=== PATIENT | male | born 1925 | race Caucasian/White ===

== ENCOUNTER 2016-12-29 09:35 | Inpatient (IN) | payer MEDICARE ==
[2016-12-29] MEDS ORDERED: Norepinephrine 8 MG/0.9% NS 250 ML ONE (09:39)
[2016-12-29] MEDS ORDERED: Pantoprazole 80 MG, Admixture Fee 1 EACH in Sodium Chloride 0.9% 100 ML IVP SCH (10:45)
--- NOTE | 2016-12-29 10:50 | RAD ---
PORTABLE CHEST ONE VIEW: Date: 12-29-16 Time: 10:55 a.m. History: Hypoxia. FINDINGS/IMPRESSION: Comparison is made with exam 07-22-09. There is a nasogastric tube that can be traced into the stomach with tip excluded from the film. The re is a left subclavian central line with tip in the direction of the SVC. No pneumothoraces are see n. There is a small right pleural effusion. There is pulmonary vascular congestion. There are mild i nfiltrates in the mid and lower lung hsieh. POS: [facility]
[2016-12-29 10:56] LABS: #Lymphocytes 0.3 thou/uL (1.20-3.40); #Monocytes 0.2 thou/uL (0.11-0.59); #Neutrophils 5.3 thou/uL (1.40-6.50); %Basophils 0.5 % (0.0-1.0); %Eosinophils 0.2 % (0.0-10.0); %Lymphocytes 4.7 % (21.0-51.0); %Monocytes 3.8 % (0.0-10.0); Hematocrit 27.7 % (42.0-52.0); Mean Platelet Volume 7.4 fL (7.4-10.4); Red Blood Cell (RBC) Count 2.82 mill/uL (4.70-6.10); White Blood Cell (WBC) Count 5.8 thou/uL (4.8-10.8)
[2016-12-29] MEDS ORDERED: Eucerin (Mineral Oil/Petrolatum,White) 30 gm Jar TOP PRN (11:15)
[2016-12-29] MEDS ORDERED: Sodium Chloride 0.65% Nasal 44 ML BOT EA NARE PRN (11:15)
[2016-12-29] MEDS ORDERED: Milk Of Magnesia 30 ML UDCUP PO PRN (11:15)
[2016-12-29] MEDS ORDERED: Pantoprazole 80 MG in Sodium Chloride 0.9% 100 ML IVPB SCH (11:15)
[2016-12-29] MEDS ORDERED: Bisacodyl 10 MG SUPP PR PRN (11:15)
[2016-12-29] MEDS ORDERED: Acetaminophen 325 MG TAB PO PRN (11:15)
[2016-12-29] MEDS ORDERED: Artificial Tears 18 DROP/0.9 ML EA EYE PRN (11:15)
[2016-12-29 11:17] LABS: ALT (SGPT) 15 U/L (8-55); AST (SGOT) 23 U/L (5-34); Alkaline Phosphatase 109 U/L (40-150); Anion Gap 21 mmol/L (10-20); BUN (Urea Nitrogen) 37 mg/dL (8.4-25.7); Bilirubin, Total 2.2 mg/dL (0.2-1.2); Calc. Creatinine Clearance 0 mL/min (70-130); Calcium 7.8 mg/dL (7.8-10.44); Carbon Dioxide 13 mmol/L (23-31); Chloride 115 mmol/L (98-107); Critical Call Chem-Lactate NUR.KR7; Estimated GFR-MDRD 24; Globulin 2.9 g/dL (2.4-3.5); Protein, Total 5.1 g/dL (5.8-8.1)
[2016-12-29] MEDS ORDERED: Sodium Chloride 0.9% 100 ML ONE (11:24)
[2016-12-29] MEDS ORDERED: Meropenem 1 GM VIAL ONE (11:24)
[2016-12-29] MEDS ORDERED: Piperacillin/Tazobactam 3.375 GM in Sodium Chloride 0.9% 100 ML IVPB SCH (11:30)
--- NOTE | 2016-12-29 11:56 | OP ---
DATE OF PROCEDURE: 12/29/2016 PREOPERATIVE DIAGNOSES: 1. Acute hypotension, likely septic shock. 2. Bilious peritonitis. POSTOPERATIVE DIAGNOSES: 1. Acute hypotension, likely septic shock. 2. Bilious peritonitis. PROCEDURES PERFORMED: Placement of left subclavian central venous catheter. SURGEON: Garett Chen D.O. INDICATIONS FOR PROCEDURE: An 89-year-old man who is several days status post laparoscopi c cholecystectomy. The patient presented to the emergency department today with acute hypotension. He has a large bilious drainage from the previous Joshua-Mendez drainage site in the right upper riana drant. Ongoing resuscitation is in place. The patient is currently on a norepinephrine by continuous infus ion through a peripheral IV. The decision was made to place a central venous access to facilitate v asopressor support. DESCRIPTION OF PROCEDURE: Verbal informed consent obtained from the patient. He was placed in supi ne position. Left chest wall is sterilely prepped and draped in the usual fashion. The skin below the left clavicle was anesthetized with 1% lidocaine. Left subclavian vein was cannulated with an 1 8 gauge introducer needle. Dark venous blood was aspirated from the vein, following which a guidewi re was passed through this needle and placed in the left subclavian vein without resistance. The ne edle was withdrawn over the guidewire. A stab incision is made adjacent to the guidewire using an 1 1 scalpel. The dilator was passed over the guidewire dilating subcutaneous tissues. A triple-lumen central venous catheter was then advanced over the guidewire and placed in the left subclavian vein without resistance and stopping at the 18 cm astrid. The guidewire is removed. Dark venous blood wa s aspirated from all 3 ports which were then flushed with saline. The catheter was secured to the a nterior chest wall using 3-0 silk suture at 2 points. Biopatch and sterile dressing was placed. Th e patient tolerated this procedure without any apparent complications. Portable chest x-ray was obt ained confirming proper placement of the catheter without any pneumothorax present.
[2016-12-29 12:40] LABS: Bilirubin Moderate (Negative); Blood, Urine Large (Negative); Glucose, Urine (Dipstick) Negative (Negative); Ketone, Urine Trace mg/dL (Negative); Nitrite Negative (Negative); Protein, Urine (Dipstick) 100 mg/dL (Neg-Trace)
[2016-12-29 12:55] LABS: Squamous Epithelial 0-3 HPF (0-3); WBC/HPF 0-3 HPF (0-3)
[2016-12-29 12:56] LABS: Bacteria/HPF None Seen HPF (None Seen); Hyaline Casts/LPF NONE SEEN LPF (0-3 Hyaline); Renal Epithelial 0-3 HPF (0-3)
[2016-12-29] MEDS ORDERED: Meropenem 500 MG in Sodium Chloride 0.9% 100 ML IVPB SCH (14:00)
[2016-12-29] MEDS ORDERED: Meropenem 1 GM in Sodium Chloride 0.9% 100 ML IVPB SCH (14:00)
[2016-12-29] MEDS: D5 0.9% NS w/ 20 mEq KCl 1,000 ML IV SCH ×2 (14:25→23:55)
--- NOTE | 2016-12-29 14:30 | HP ---
PRIMARY CARE PHYSICIAN: City call admission. REASON FOR ADMISSION: Sent from [facility] for hypotension, coffee- ground vomiting. HISTORY OF PRESENT ILLNESS: An 89-year-old male who was recently admitted in our hospital on 2016. At that time, patient was admitted by Dr. Bran. The patient was admitted for abnormal LF T along with nausea, vomiting, and abdominal pain. The patient was found with choledocholithiasis a nd possible pancreatitis. He was admitted to medical floor. During that admission, gastroenterolog ist was consulted and the patient underwent ERCP. The patient also evaluated by Dr. Chen and Dr. Minor donovan did laparoscopic cholecystectomy and based on pathology report, the patient was having acute on chronic cholecystitis. Gallbladder wall was pretty much not existing and as per Dr. Chen, the pat ient's gallbladder was necrotizing and gangrenous. After surgery, he had drain in place which was d raining significant amount even on the day of discharge. The patient's pain was relatively well con trolled. He was discharged to senior living once all consultants cleared him with a biliary drain in place. This patient was discharged pretty much yesterday and he was sent from senior living today, because h is blood pressure was low. The patient was also having coffee-ground vomiting. He was tachycardic. The patient was taken to [facility] where he had an NG tube, which showed coffee-gr ound material. His H\T\H over there at 10.3 and his lactic acid level was 8.4. He was saturating o nly 86% on 2 liter with nasal cannula. The patient had DNR status at senior living. The patient was also hypotensive and that is why he required little bit of Levophed. Subsequently, Levophed drip w as discontinued in our emergency room. The patient was given Protonix 80 mg and then subsequently drip. The patient was also given Zosyn. The patient also received albumin 25 grams. At this point, the patient is lethargic, he is not able to provide any more history. Dr. April ricketts evaluated this patient who did central line on him. Dr. Camarena was also notified from the ER. At this point, the patient is being admitted in ICU for close monitoring. In the emergency room, Dr. Chen removed a biliary drain, after that it was leaking and there is con cern of biliary leak. PAST MEDICAL HISTORY: Hypertension, muscular dystrophy, history of pneumonia, history of brain tumo r, recent history of choledocholithiasis, Alzheimer's dementia, benign enlargement of prostate. PAST SURGICAL HISTORY: Right hand skin cancer removed, appendicectomy, laparoscopic cholecystectomy , ERCP. PAST PSYCHIATRIC HISTORY: Reviewed and negative. SOCIAL HISTORY: Patient lives in a long-term care facility in [facility]. No history of tobacco, alcohol or illicit drug abuse. FAMILY HISTORY: The patient is not able to provide any family history and no family member present at bedside at this point. ALLERGIES: No known drug allergies. CURRENT HOME MEDICATIONS: The patient was discharged yesterday on the following medication: Tyleno l 325 mg q.4 hourly p.r.n., amlodipine 5 mg p.o. daily, Augmentin 875 twice daily, Dulcolax 5 mg p.r .n., calcium 500 mg p.o. b.i.d., Pepcid 20 mg p.o. at bedtime, Proscar 5 mg p.o. daily, Linzess 145 mcg p.o. daily, Milk of Magnesia p.r.n., meclizine 12.5 mg p.o. t.i.d. p.r.n., Lopressor 50 mg twice daily, MiraLax 17 gram p.o. daily, Exelon patch 9.5 topical daily, Florastor 250 mg daily, Carafate 1 gram p.o. b.i.d., Flomax 0.4 mg p.o. at bedtime, clonidine patch every 7 days, Benadryl 25 mg q.8 hours p.r.n. EMERGENCY ROOM COURSE: As mentioned above, the patient was given Zosyn 3.375 gram, Protonix 80 mg, Levophed drip, albumin 25 gram, IV fluid. REVIEW OF SYSTEMS: The following complete review of systems was negative, unless otherwise mentione d in the HPI or below: Constitutional: Weight loss or gain, ability to conduct usual activities. Skin: Rash, itching. Eyes: Double vision, pain. ENT/Mouth: Nose bleeding, neck stiffness, pain, tenderness. Cardiovascular: Palpitations, dyspnea on exertion, orthopnea. Respiratory: Shortness of breath, wheezing, cough, hemoptysis, fever or night sweats. Gastrointestinal: Poor appetite, abdominal pain, heartburn, nausea, vomiting, constipation, or diar bárbara. Genitourinary: Urgency, frequency, dysuria, nocturia. Musculoskeletal: Pain, swelling. Neurologic/Psychiatric: Anxiety, depression. Allergy/Immunologic: Skin rash, bleeding tendency. The review of systems is limited, because of the patient's lethargy as well as underlying dementia. PHYSICAL EXAMINATION: VITAL SIGNS: Most recent vital signs, blood pressure 117/70, pulse 112, respiratory rate 18, satura tion 96% on room air, weight 72.5 kilograms, temperature 97.5. GENERAL: Patient is lethargic, arousable, no obvious acute distress. HEAD: Normocephalic, atraumatic. EYES: Pupils round, reactive to light. Extraocular muscles intact. ENT: NG tube in place. Dry mucous membranes, no oral lesions. No pharyngeal erythema, no exudate. NECK: Supple. Range of motion is normal. No meningeal signs of irritation. LUNGS: Coarse breath sounds, but no end-expiratory wheezing, no rales, no cold, no rhonchi. No acc essory muscles of respiration in use. CARDIAC: S1, S2 regular, tachycardia, no murmur elicited, no gallop, no rub. ABDOMEN: Drain site is covered with a dressing with a bile leak. The patient does have vague abdom inal discomfort, no peritoneal sign, no guarding, no rigidity, no rebound, no organomegaly, no mass. GENITOURINARY: Hidalgo catheter in place. EXTREMITIES: No edema. Good peripheral pulsation. SKIN: No skin rash. HEMATOLOGIC: No lymphadenopathy. NEUROLOGIC: The patient is moving all 4 limbs. Speech is normal. No grossly focal neurological de ficit noted at this point. SIGNIFICANT LABORATORY DATA: Record from [facility] reviewed. Currently CBC: WB C 5.8, hemoglobin 8.9, MCV 98.3, platelets 302. BMP: Sodium 145, potassium 3.5, chloride 115, carb on dioxide 13, anion gap 21, BUN 37, creatinine 2.52, glucose 88, calcium 7.8. Lactic acid 5.5. To flor bilirubin 2.2, AST 23, ALT 15, alkaline phosphatase 109, albumin 2.2. BNP 221.2. Urinalysis, b ilirubin large. Blood culture obtained. Urine culture obtained. ASSESSMENT AND PLAN: 1. Acute hypotension. Patient has coffee-ground emesis. The patient has lactic acidosis. At this point, differential diagnosis is underlying sepsis versus volume depletion. This patient has eleva edgar BNP and that is why we will cautiously give him IV fluids to prevent any volume overload. This patient may need Levophed drip if needed if his blood pressure drops to below 85. We will watch ree brenday in ICU. We will monitor vitals and hemodynamics. 2. Acute kidney failure. The patient does have elevated BUN and creatinine ratio. As mentioned ab ove, acute kidney failure is likely related with prerenal etiology from sepsis as well as from volum e depletion. At this point, we will avoid all blood pressure medication and will continue with IV f luid and we will watch for any fluid overload and we will monitor renal function. We will avoid any nephrotoxins. 3. Elevated anion gap lactic acidosis. Metabolic acidosis and lactic acidosis related with renal f ailure and possible sepsis. We will monitor BMP closely. 4. Coffee-ground emesis. The patient is already on Protonix drip. GI already notified. The patie nt may need a procedure like ERCP for upper endoscopy. We will monitor H\T\H and we will consider b lood transfusion support as needed basis. 5. Anemia due to acute blood loss. This patient's hemoglobin on discharge was 11.6, currently 8.9. We will monitor H\T\H while in hospital. If hemoglobin drops to below 8, then we will consider tr ansfusion of PRBC. 6. Recent laparoscopic cholecystectomy and choledocholithiasis. At this point, the patient's drain is removed. He has likely biliary leak. At this point, we will treat with empiric antibiotic ther apy with Zosyn. [employer] Operator and general surgeon already involved in the patient's care. We will defer plan of care for that problem to them. 7. History of hypertension, but currently hypotension, that is why we will hold all antihypertensiv e medication. 8. Alzheimer's dementia. We will consider adding Exelon patch daily. 9. Benign enlargement of prostate. We will consider continue with Flomax and Proscar while in hosp ital. 10. Elevated BNP. We will obtain echocardiography to assess ejection fraction and other structural abnormality. We will continue with the DuoNeb q.6 hours. We will watch for any fluid overload. 11. Deep venous thrombosis prophylaxis because of coffee-ground vomiting. We will avoid any hepari n product. 12. Gastrointestinal prophylaxis. Patient is already on Protonix drip. 13. Code status: The patient is DNR as per report, but patient does not have any family members, s o unable to verify his code status. Whenever we have family member contact, then will verify his co de status. Disposition and plan based on clinical course, we are expecting patient's stay in the hospital more than 2 midnights. Plan of care discussed with the patient in detail.
[2016-12-29] MEDS ORDERED: Sodium Chloride 0.9% 1,000 ML IV SCH (15:15)
[2016-12-29] MEDS ORDERED: Potassium Chloride 40 MEQ in Premix Bag 1 BAG IVPB SCH (17:45)
[2016-12-29] MEDS ORDERED: Magnesium Sulfate 3 GM in Sodium Chloride 0.9% 100 ML IVPB SCH (18:00)
[2016-12-29] MEDS: Piperacillin/Tazobactam 3.375 GM in Sodium Chloride 0.9% 100 ML IVPB SCH ×2 (19:48→23:01)
[2016-12-29] MEDS ORDERED: Lidocaine 1% (PF) 30 ML VIAL ONE (20:40)
[2016-12-29] MEDS ORDERED: Amiodarone HCl 150 MG, Admixture Fee 1 EACH in Dextrose 5% in Water 100 ML IVPB SCH ×3 (21:30)
[2016-12-29] MEDS: Amiodarone HCl 450 MG, Admixture Fee 1 EACH in Dextrose 5% in Water 250 ML IVPB SCH ×3 (21:41)
--- NOTE | 2016-12-29 21:58 | CON ---
DATE OF CONSULTATION: 12/29/2016 REASON FOR CONSULTATION: Possible bile leak. HISTORY OF PRESENT ILLNESS: Mr. Ng is known to me from an ERCP, at which time he had a large sp hincterotomy and removal of over 1 cm common bile duct stone on 12/25. His main problem; however th at he had gangrenous cholecystitis and he underwent laparoscopic cholecystectomy on 12/27/2016. He was discharged to home yesterday. He returns today hypotensive and tachycardic with abdominal pain. He had apparently a AUNDREA drain that was not draining, but it was removed in the area where massive a shanthi of bile coming out. He presented with tachycardia and hypotension. His white count was 5.8, hemoglobin 8.9, platelet count 302, lactic acid 5.5, bilirubin 2.2, AST and ALT 23 and 15 with fallon line phosphatase of 109, albumin is 2.2. Electrolytes normal, except for a BUN and creatinine of 37 and 2.52. He had a central line placed in the ER. He has not had a CAT scan of his abdomen. When he presented, he came in for reportedly coffee ground emesis in the emergency room. He received 50 0 mL bolus in the ER, pulse was 132 with a blood pressure of 112/57, temperature 98. PAST MEDICAL HISTORY, SURGICAL HISTORY and HOME MEDICATIONS: Please see consult dated on 12/23/2016 . PRESENT MEDICATIONS: He received antibiotics in the ER including Zosyn. PHYSICAL EXAMINATION: VITAL SIGNS: Blood pressure 124/56, pulse 123, he is icteric mildly. LUNGS: Clear. HEART: Regular rate and rhythm without clicks or murmurs. ABDOMEN: Protuberant. RECTAL: Examination reveals no melena. Bowel sounds are positive. LABORATORY STUDIES: As per HPI. ASSESSMENT: Likely bowel peritonitis. He has had a drop in hemoglobin from 10-11 range to 8.9 and there was reported coffee ground emesis in the outside ER. RECOMMENDATIONS: 1. IV PPI. 2. Serial H\T\Hs. 3. I think once he gets stabilized, he needs a CAT scan of abdomen and pelvis. He has a biloma pre sent that needs to be drained. 4. He has been started on broad spectrum antibiotics. 5. Regarding the role of an ERCP, unless he has bleeding from his ampulla, there is probably not a role for ERCP at this point in time. Once he is more stabilized, we can consider performing that if he has ongoing bile leak. The first biloma needs to be drained, and he needs to be treated for inf ection. If there are signs of bleeding, he will need an upper endoscopy to make sure if there is an y bleeding at his sphincterotomy site, but this would be atypical over 4 days after this procedure. A stent in the bile duct is not probably going to do very much to help his bile leak in that he alr volodymyr has a very large sphincterotomy present. The stents do not close off bile leaks; they only ser ve to decrease pressure from the common bile duct to the duodenum across the ampulla. This has alre jamarcus been done via very large generous sphincterotomy. If he has continued leaking, an ERCP would be helpful in defining the point of leak for surgical repair, if he has a large bile defect in the bethanie e duct or some type of injury in the liver.
[2016-12-29] MEDS: Pantoprazole 80 MG, Admixture Fee 1 EACH in Sodium Chloride 0.9% 100 ML IVPB SCH (22:10)
[2016-12-29] MEDS: Ondansetron HCl/PF 4 MG/2 ML Vial IVP PRN (23:01)
--- NOTE | 2016-12-30 03:59 | CON ---
NEPHROLOGY CONSULTATION NOTE DATE OF CONSULTATION: 12/29/2016 CONSULTING PHYSICIAN: Dr. Davis. REASON FOR CONSULTATION: Acute kidney injury. REASON FOR ADMISSION: Hypotension and coffee ground vomiting HISTORY OF PRESENT ILLNESS: This is an 89-year-old male who was recently discharged from the hospit al and was sent to the [facility] and was found to have abdominal pain, nausea, vomitin g and coffee ground vomiting and he was admitted back. The patient had a creatinine of 1.1 on disch arge yesterday and this morning was 2.5, potassium is 3.5. Patient is severely hypertensive with lo w urine output and is having abdominal pain. Patient is not able to give a good history. No chest pain or palpitation. The patient is a DNR status and clearly says no dialysis needed. Patient is n ot able to communicate very well. No fever or chills. Patient is currently on evaluation for GI bleed. PAST MEDICAL HISTORY: Positive for hypertension, muscular dystrophy, pneumonia, brain tumor, choled ocholithiasis, dementia and benign prostatic hypertrophy. PAST SURGICAL HISTORY: Right hand surgery for skin cancer removal, appendicectomy, laparoscopic cho lecystectomy and endoscopic retrograde cholangiopancreatography. SOCIAL HISTORY: Lives in a senior living. No smoking, alcohol or illicit drug abuse. FAMILY HISTORY: No history of any kidney disease. ALLERGIES: No known drug allergies. HOME MEDICATIONS: Reviewed include Tylenol, amlodipine, Augmentin, Dulcolax, calcium, Pepcid, Prosc ar, Linzess, Milk of Magnesia, Lopressor, MiraLax, Exelon, Florastor, Carafate, Flomax, clonidine an d Benadryl. REVIEW OF SYSTEMS: Could not be obtained due to the advanced dementia. PHYSICAL EXAMINATION: GENERAL: An elderly male in no apparent distress. VITAL SIGNS: Temperature 98.0, pulse 107, respiratory rate 12 and blood pressure 109/48. HEENT: Atraumatic and normocephalic. Oral mucosa is moist. NECK: Supple. CARDIOVASCULAR: S1 and S2 heard. Rate and rhythm regular. RESPIRATORY: Clear. GASTROINTESTINAL: Abdomen is soft. Mild diffuse tenderness. MUSCULOSKELETAL: No tenderness, no edema. DERMATOLOGIC: No skin rash. NEUROLOGIC: Awake. Dementia present. PSYCHIATRIC: Depressed. LABORATORY DATA: Potassium is 3.5. Hemoglobin is 8.9. BUN 37, creatinine is 2.5 and lactic acid i s 5.5. ASSESSMENT AND PLAN: 1. Acute kidney injury, most likely volume depletion versus sepsis. Agree with supportive care, av oid nephrotoxins and hydration as tolerated. 2. Lactic acidosis. 3. Hypoalbuminemia. 4. Anemia. 5. Acidosis. 6. Medications list reviewed. 7. Avoid nephrotoxins. Keep systolic blood pressure more than 90-100 with supportive care. Agree with albumin too and rule out sepsis. Overall, long-term prognosis is poor. We will continue to fo paul.
[2016-12-30] MEDS: Ondansetron HCl/PF 4 MG/2 ML Vial IVP PRN (05:28)
[2016-12-30 05:32] LABS: Band 33 % (5-11); Hematocrit 22.9 % (42.0-52.0); Mean Platelet Volume 7.4 fL (7.4-10.4); Metamyelocyte 1 % (0-0); Neutrophil 60 % (42-75); Nucleated RBC 1 % (0); Red Blood Cell (RBC) Count 2.34 mill/uL (4.70-6.10); White Blood Cell (WBC) Count 9.5 thou/uL (4.8-10.8)
[2016-12-30] MEDS: Amiodarone HCl 450 MG, Admixture Fee 1 EACH in Dextrose 5% in Water 250 ML IVPB SCH ×6 (05:42→21:52)
[2016-12-30] MEDS: Pantoprazole 80 MG, Admixture Fee 1 EACH in Sodium Chloride 0.9% 100 ML IVPB SCH (05:42)
[2016-12-30 05:43] LABS: ALT (SGPT) 13 U/L (8-55); AST (SGOT) 23 U/L (5-34); Alkaline Phosphatase 87 U/L (40-150); BUN (Urea Nitrogen) 45 mg/dL (8.4-25.7); Bilirubin, Total 1.5 mg/dL (0.2-1.2); Calc. Creatinine Clearance 18 mL/min (70-130); Calcium 7.9 mg/dL (7.8-10.44); Chloride 121 mmol/L (98-107); Estimated GFR-MDRD 20; Globulin 2.8 g/dL (2.4-3.5); Magnesium 2.6 mg/dL (1.6-2.6); Protein, Total 5.1 g/dL (5.8-8.1)
[2016-12-30 06:01] LABS: Anion Gap 19 mmol/L (10-20); Carbon Dioxide 10 mmol/L (23-31)
[2016-12-30] MEDS: Piperacillin/Tazobactam 3.375 GM in Sodium Chloride 0.9% 100 ML IVPB SCH (06:29)
[2016-12-30] MEDS ORDERED: Sodium Bicarbonate 150 MEQ in Dextrose 5% in Water 1,000 ML IV SCH ×2 (08:00)
[2016-12-30] MEDS ORDERED: Potassium Chloride 40 MEQ in Premix Bag 1 BAG IVPB SCH (08:30)
--- NOTE | 2016-12-30 09:16 | PDOC.PN ---
- Subjective Encounter Start Date: 12/30/16 Encounter Start Time: 09:14 Subjective: No agitation -: No f/c - Objective Resuscitation Status: Resuscitation Status FULL:Full Resuscitation MAR Reviewed: Yes Vital Signs & Weight: Vital Signs (12 hours) Temp Pulse Resp Pulse Ox 12/30/16 07:11 114 H 32 H 99 12/30/16 00:07 114 H 30 H 100 12/30/16 00:00 97.9 F Weight Weight 171 lb 1.259 oz Most Recent Monitor Data Heart Rate from ECG 107 NIBP 138/45 NIBP BP-Mean 76 Respiration from ECG 26 SpO2 100 I&O: 12/29/16 12/30/16 12/31/16 06:59 06:59 06:59 Intake Total 3796 Output Total 699 Balance 3097 Result Diagrams: 12/30/16 04:46 12/30/16 04:46 Phys Exam - Physical Examination Constitutional: NAD HEENT: moist MMs, sclera anicteric Neck: no nodes, no JVD Respiratory: no wheezing, no rales, no rhonchi Cardiovascular: no significant murmur, no rub Gastrointestinal: soft tender - generalized Lymphatic: no nodes Skin: no rash, normal turgor Dx/Plan (1) Hypotension Status: Acute (2) S/P laparoscopic cholecystectomy Code(s): Z90.49 - ACQUIRED ABSENCE OF OTHER SPECIFIED PARTS OF DIGESTIVE TRACT Status: Acute (3) Anemia, normocytic normochromic Code(s): D64.9 - ANEMIA, UNSPECIFIED Status: Chronic - Plan * s/p cholecystectomy and biliary drain: ? biliary leak (biliary drain removed) * Acute blood loss anemia 2/2 GI bleed: appreciate GI input, IV PPI, check serial H/H * Shock 2/2 Sepsis vs. Volume depletion/Hemorrhage: appreciate pulm input, monitor BP closely in ICU, blood cxs, abx * MONIQUE: avoid nephrotoxic agents, check renal labs in AM
--- NOTE | 2016-12-30 10:36 | PRG ---
DATE OF SERVICE: 12/30/2016 SUBJECTIVE: Mr. Manolo Ng is an 89-year-old male, hospital day #2. The patient was admitted yeste rday for hypotension, shock, status post laparoscopic cholecystectomy after being admitted for acute gangrenous cholecystitis with cholelithiasis. The patient had received ERCP prior to a laparoscopi c cholecystectomy yesterday. His drain was removed from his abdomen. There has been copious biliou s output from the drain site since that time. The patient was initially admitted on vasopressors. Overnight these have been weaned off. However, the patient was in atrial fibrillation with rapid ve ntricular rate. He was started on amiodarone. Rate did improve initially, but is back in the 120s this a.m. Upon our evaluation, the patient is awaiting a repeat CT scan of the abdomen with p.o. con trast. He was given 1 dose of contrast and threw up. His NG tube was found to be malfunctioning. We replaced it at bedside with Dr. Chen. OBJECTIVE: VITAL SIGNS: Temperature 98.1, pulse 135, respirations 26, O2 sat 97% on 4 liters nasal cannula, bl ood pressure 138/45. GENERAL: Elderly appearing male in no acute distress, resting in bed. PULMONARY: Normal work of breathing. Symmetric rise. CARDIOVASCULAR: Irregularly irregular. Tachycardic. GASTROINTESTINAL: The abdomen is soft with mild generalized tenderness. He still has bilious appea ring output from his drain site. He has dark NG output. MUSCULOSKELETAL: Moves all extremities x4. NEUROLOGIC: No focal deficit noted. LABORATORY DATA: WBC 9.5, hemoglobin 7.1, hematocrit 22.9, platelet count 331. Sodium 145, potassi um 3.5, chloride 121, carbon dioxide 10, BUN 45, creatinine 3.0. Glucose 190, calcium 7.9, phosphor us 2.5, magnesium 2.6, total bilirubin 1.5. NG output, there is greater than 1 liter in the caniste r of dark coffee ground appearing liquid. Urine output overnight documented as 174 mL. The right-s ided abdominal drain with 425 mL out overnight. ASSESSMENT: 1. Status post laparoscopic cholecystectomy 12/25/[address] Chen. 2. Recent acute gangrenous cholecystitis with cholelithiasis. 3. Shock. 4. Acute kidney injury likely secondary to acute tubular necrosis. 5. Metabolic acidosis secondary to above. 6. Atrial fibrillation with rapid ventricular response. 7. Acute blood loss anemia. 8. Likely gastrointestinal bleed. 9. Electrolyte abnormality. PLAN: Continue amiodarone infusion. Start bicarbonate drip at 150 mL an hour. Replete electrolyt es as necessary. Follow urine output. Follow respiratory status closely. Follow drainage output. Transfuse 1 unit packed red blood cells. Follow GI plan and recommendations. Nephrology has been consulted by primary/medicine team. This patient was seen and evaluated by Dr. Chen.
[2016-12-30] MEDS: Piperacillin/Tazobactam 2.25 GM in Sodium Chloride 0.9% 100 ML IVPB SCH ×2 (11:12→18:09)
[2016-12-30] MEDS ORDERED: Fentanyl 100 MCG/2 ML VIAL ONE (13:50)
[2016-12-30] MEDS ORDERED: Succinylcholine Chloride 20 MG/ML 10 ml SYRINGE FS ONE (14:03)
[2016-12-30] MEDS ORDERED: ePHEDrine/0.9% NaCl/PF SYRINGE 50 mg/10 ml ONE (14:03)
[2016-12-30] MEDS ORDERED: PHENYLEPHRINE-NS 100 MCG/ML 10 ML SYRINGE ONE (14:03)
[2016-12-30] MEDS ORDERED: Vecuronium 10 MG VIAL ONE (14:03)
[2016-12-30] MEDS ORDERED: Phenylephrine 10 MG/NS 250 ML 250 ML ONE (14:47)
[2016-12-30] MEDS ORDERED: Iothalamate Meglumine 60% 50 ML VIAL FS ONE (14:50)
[2016-12-30 15:40] LABS: #Lymphocytes 0.4 thou/uL (1.20-3.40); #Monocytes 0.3 thou/uL (0.11-0.59); %Basophils 0.1 % (0.0-1.0); %Eosinophils 0.1 % (0.0-10.0); %Monocytes 3.3 % (0.0-10.0); Hematocrit 27.1 % (42.0-52.0); Mean Platelet Volume 6.7 fL (7.4-10.4); Red Blood Cell (RBC) Count 2.79 mill/uL (4.70-6.10); White Blood Cell (WBC) Count 8.7 thou/uL (4.8-10.8)
[2016-12-30 15:44] LABS: PTT 64.5 SEC (22.9-36.1); Prothrombin Time 21.8 SEC (12.0-14.7)
[2016-12-30] MEDS ORDERED: Midazolam HCl 2 mg/2 ml Vial SLOW IVP SCH (15:45)
[2016-12-30] MEDS ORDERED: Fentanyl 100 MCG/2 ML VIAL SLOW IVP SCH (15:45)
[2016-12-30 16:34] LABS: Oxyhemoglobin 89.9 % (94.0-97.0); Sodium 147 mmol/L (135-148)
[2016-12-30 16:37] LABS: Vent YES
[2016-12-30 16:38] LABS: Mechanical Tidal Volume 500 ml; Mode SIMV; Pressure Support 10 cmH2O
[2016-12-30] MEDS: Albumin 5% 500 ML ONE ×2 (16:45→18:02)
--- NOTE | 2016-12-30 17:52 | PRG ---
DATE OF SERVICE: 12/30/2016 SUBJECTIVE: The patient is seen and examined in ICU and in mild to moderate distress. Patient was having shortness of breath and he is tachycardic, started on IV fluids and surgery team is following . OBJECTIVE: GENERAL: This is an elderly male in mild to moderate distress. VITAL SIGNS: Temperature 98.0, pulse 141, respiratory rate 30, blood pressure is 133/47. HEENT: Atraumatic, normocephalic. Oral mucosa is moist. NECK: Supple, no masses. CARDIOVASCULAR: S1, S2 heard, tachycardic. RESPIRATORY: Coarse crackles bilaterally. GASTROINTESTINAL: Abdomen is soft. Mild tenderness. MUSCULOSKELETAL: No tenderness, no edema. DERMATOLOGIC: No skin rash. NEUROLOGIC: Alert, awake, but not oriented and dementia present. LABORATORY DATA: Hemoglobin is 8.6. WBC is 8.7, potassium 3.5, BUN is 45, creatinine is 3.7. ASSESSMENT AND PLAN: 1. Acute kidney injury most likely from sepsis and volume depletion. Agree with hydration, not isaac e if patient is able to tolerate all the IV fluids. Continue close monitoring of the respiratory st atus and monitor. 2. Lactic acidosis, currently on bicarbonate drip. 3. Hypoalbuminemia. 4. Anemia, status post transfusion and follow up with GI. Overall, long-term prognosis is poor. No acute indication for dialysis. My understanding is the andi jonathan refused to have dialysis, continue supportive care, avoid nephrotoxins, and renally dose all t he medicines. Continue hydration as tolerated with close monitoring respiratory status. Continue I CU monitoring. We will follow.
--- NOTE | 2016-12-30 18:18 | OP ---
DATE OF PROCEDURE: 12/30/2016 PROCEDURES PERFORMED: Endoscopic retrograde cholangiopancreatography with plastic biliary stent neftaly cement and esophagogastroduodenoscopy with control of hemorrhage. PREOPERATIVE DIAGNOSIS: Acute gastrointestinal bleed, post-sphincterotomy and bile leak. DESCRIPTION OF PROCEDURE: The procedure was performed emergently. The patient had signs of ongoing bleeding with hemodynamic compromise with tachycardia with a pulse in the 120s. He was tachypneic and required intubation and mechanical ventilation. The forward viewing endoscope was advanced easi ly to the second portion of the duodenum and retroflexion was performed in the stomach. There was e rosive esophagitis at the GE junction with a focal area of mucosal break with a bloody base, but not active bleeding. This may have been a site of NG trauma; however, a small Nolvia-Perez tear was a lso possible. This site was cauterized with a 10-Libyan gold probe with good hemostasis confirmed. There was some circumferential erosive esophagitis around the GE junction as well. The gastric muc aleta was normal including retroflexed views. The pylorus was normal and the first portion of the duo denum were normal. The sphincterotomy site had fresh red blood clot around it. This was washed wit h water and reaccumulation of the fresh clot occurred. The common bile duct was cannulated easily w ith a sphincterotome and the guidewire was advanced up into the intrahepatic ducts. Cholangiogram w as performed which revealed a high-grade leak from the cystic duct stump. There was no clip remaini ng at the cystic duct stump. A 7 cm 11.5 Libyan stent was then placed. Good bile flow was visualiz ed from the stent. The sphincterotomy site was again washed through the sphinctertome; and at this point, an active pulsatile bleeding site could be visualized in the base of the sphincterotomy site near the stent. This site was cauterized with a 10-Libyan gold probe with good hemostasis confirmed . Air and bile was then suctioned from the stomach. Then, procedure was completed. IMPRESSION: 1. Grade C erosive esophagitis at the gastroesophageal junction with a focal mucosal break, which m ay have been NG trauma, but a small Nolvia-Perez was also possible. This was cauterized with a 10- Libyan gold probe. 2. Active pulsatile bleeding from the sphincterotomy site. This was controlled with good hemostasi s with electrocautery with a 10-Libyan gold probe. 3. High-grade bile leak from the cystic duct stump. An 11.5 Libyan 7 cm stent was placed with good bile flow was visualized. RECOMMENDATIONS: 1. Follow output from the AUNDREA drain. Hopefully, the bile leak will resolve with stenting and having been post-sphincterotomy. 2. The plastic biliary stent will need to be removed around a month.
--- NOTE | 2016-12-30 18:36 | RAD ---
ERCP: 12/30/16 Total of four views taken with fluoroscopy in OR during ERCP procedure are preserved. HISTORY: Intraoperative imaging during ERCP procedure. FINDINGS/IMPRESSION: Initial image shows cannulization of the common duct. There is suggestion of filling defect in the l ower common duct. there is partial opacification of the common duct. There is evidence of a focus of extravasated contrast adjacent to the common duct. The following images show wire in the common jeancarlos t and a final image shows evidence of a common duct stent placement. POS: GAGANDEEP
[2016-12-30] MEDS ORDERED: Fentanyl 5000 MCG/250 ML CADD IV PRN (19:03)
--- NOTE | 2016-12-30 19:19 | CT ---
CT ABDOMEN AND PELVIS WITHOUT IV CONTRAST: 12/30/16 Multiple axial tomograms obtained through the abdomen and pelvis without IV enhancement. Some oral c ontrast had been previously given. Today's exam is performed following ERCP procedure. HISTORY: Bile leak. FINDINGS: Images through the lung bases show small to moderate bilateral pleural effusions with dense bibasila r atelectasis. Images through the upper abdomen show extravasated contrast surrounding the liver margin and into th e lucas hepatis consistent with extravasation of contrast during the ERCP procedure. There is a comm on bile duct stent noted in place. There is free intraperitoneal air. There is dense contrast seen within the gastric lumen in the left upper quadrant. When comparison is made to CT from [facility] performed 12/29/16, this focal contrast was present at that time and does not represent extravasated contrast or contrast entering the stomach from the rec ent ERCP procedure. There is a small amount of fluid in the left upper quadrant surrounding the sple en. Free fluid/bile does extend along the right colonic gutter into the pelvis. There are mildly dilated loops of jejunum which appear nonspecific. The ileal loops are normal calib er. Jejunal loops do measure up to 4 cm. This has a similar appearance to the CT from [facility] and a partial proximal to mid small bowel obstruction cannot be excluded. Kidneys are unremarkable. There is no hydronephrosis seen. Free fluid extends into the right inguinal canal. IMPRESSION: 1. Small to moderate bilateral pleural effusions with dense bibasilar atelectasis. 2. Extravasated contrast surrounding the liver margin and into the lucas hepatis which represen ts extravasated contrast from the ERCP procedure performed earlier today. 3. There is a focal area of dense contrast in the gastric lumen in left upper quadrant which wa s present on yesterday's CT from [facility] and is not related to the contrast fro m the ERCP procedure. 4. There is free bile/fluid surrounding the liver and extending down the colonic gutter and int o the pelvis. A small amount of free fluid also surrounds the spleen. 5. Dilated loops of jejunum with normal caliber ileal loops. This was also present on the CT fr om [facility]. Partial small bowel obstruction cannot be excluded. POS: GAGANDEEP
[2016-12-30] MEDS ORDERED: Fentanyl 20 MCG/ML 250 ML IVPB SCH (20:36)
[2016-12-30 21:38] LABS: Hematocrit 26.9 % (42.0-52.0)
--- NOTE | 2016-12-30 22:13 | PRG ---
DATE OF SERVICE: 12/30/2016 SUBJECTIVE: Ms. Ng remains tachycardic with heart rate about 117-120, respirations are about 40 , blood pressure is 137/49. He is on no pressors. He is without complaints. The nurses note that he has been throwing up. Dr. Chen has apparently been trying to give him oral contrast for a CAT s can. He has not had any reported bowel movements. In's and out's of right lower quadrant drain bag has set out 425 mL bilious fluid. Gastric drainage is recorded at 700 mL, this is coffee- ground l zoltan. Urine output was 124 yesterday and 150 today. OBJECTIVE: GENERAL: He is nonicteric. LUNGS: Coarse with sounds at bases. CARDIAC: Heart has irregular rate and rhythm. ABDOMEN: Slightly protuberant. Bile is green in color, it is coming out of the drain. EXTREMITIES: Reveal no clubbing, cyanosis or edema. LABORATORY STUDIES: Sodium is 149, potassium 3.5, chloride is 121, bicarbonate is 10, anion gap 14, BUN 45 up from 37 yesterday, creatinine is 3 up from 2.5 yesterday and 1.15 on , bilirubin is 1 .5, AST 23, ALT 13, albumin 2.3. INR was 1.2 on the . Hematology: White count 9.5; hemoglobin is down to 7.1 it had been right around 10 to 10.7 during his last admission, it was 8.9 on admissi on yesterday, 7.1 today; platelet count 331,000. ASSESSMENT: 1. Acute renal failure. 2. Biloma spontaneously drainage from abdominal wound. The plan today was for him to have a repeat CAT scan, but this has been delayed as he was throwing up oral contrast. I have recommended to Gen eral Surgery if they stop the oral contrast as he cannot tolerate it and get a CAT scan without cont rast to reevaluate the issue of biloma and if he has a biloma, needs to be drained by Radiology. 3. He has had a drop in hemoglobin. Some of this is probably related to hydration. He is positive over 3 L since admission, but he does have about 700-800 mL of coffee-ground emesis in the emesis c ontainer and his hemoglobin has dropped from 11.6-7.1, presently he is receiving a unit of blood. RECOMMENDATIONS: Continue IV Protonix drip, transfuse another unit of blood, emergent EGD this afte rnoon and if that is negative, I suspect more suspicious issue such as a Nolvia-Perez tear, but the ample will be evaluated as well. My partner, Dr. Swapnil Morin, is going to do that this afternoon and this has been discussed with the patient and family. Issues or questions regarding bile duct stent are not applicable presently in light of how ill this patient is. Bile duct stent is probably not going to add anything to improvement of his biliary la inage, bile leak that has already been achieved a large sphincterotomy. This can be addressed when the patient is more stable. With regard to patient's respiratory rate of around 40, he will likely return to the ICU intubated r esulting in a component of respiratory failure.
[2016-12-31] MEDS: Piperacillin/Tazobactam 2.25 GM in Sodium Chloride 0.9% 100 ML IVPB SCH ×4 (00:13→17:16)
[2016-12-31] MEDS: Sodium Bicarbonate 150 MEQ, Admixture Fee 1 EACH in Dextrose 5% in Water 1,000 ML IV SCH ×3 (02:01)
[2016-12-31] MEDS: Pantoprazole 80 MG, Admixture Fee 1 EACH in Sodium Chloride 0.9% 100 ML IVPB SCH ×2 (02:02→13:24)
[2016-12-31 04:44] LABS: Hematocrit 25.6 % (42.0-52.0)
[2016-12-31 07:11] LABS: Hematocrit 24.1 % (42.0-52.0)
[2016-12-31 07:14] LABS: Hematocrit 24.6 % (42.0-52.0); Mean Platelet Volume 7.2 fL (7.4-10.4); Red Blood Cell (RBC) Count 2.63 mill/uL (4.70-6.10); White Blood Cell (WBC) Count 5.9 thou/uL (4.8-10.8)
[2016-12-31 07:16] LABS: Prothrombin Time 19.6 SEC (12.0-14.7)
[2016-12-31 07:17] LABS: PTT 57.3 SEC (22.9-36.1)
[2016-12-31 07:37] LABS: ALT (SGPT) 9 U/L (8-55); AST (SGOT) 15 U/L (5-34); Alkaline Phosphatase 76 U/L (40-150); Anion Gap 15 mmol/L (10-20); BUN (Urea Nitrogen) 43 mg/dL (8.4-25.7); Bilirubin, Total 1.2 mg/dL (0.2-1.2); Calc. Creatinine Clearance 20 mL/min (70-130); Calcium 7.3 mg/dL (7.8-10.44); Carbon Dioxide 20 mmol/L (23-31); Chloride 115 mmol/L (98-107); Estimated GFR-MDRD 21; Globulin 2.6 g/dL (2.4-3.5); Magnesium 2.3 mg/dL (1.6-2.6); Protein, Total 4.9 g/dL (5.8-8.1)
[2016-12-31 07:55] LABS: Band 45 % (5-11); Metamyelocyte 2 % (0-0); Myelocyte 1 % (0-0); Neutrophil 44 % (42-75); Nucleated RBC 1 % (0); Polychromasia SLIGHT = 2-3 cells (100X) (0-2/hpf); Toxic Granulation SLIGHT; Vacuoles SLIGHT
--- NOTE | 2016-12-31 08:47 | PDOC.PN ---
- Subjective Encounter Start Date: 12/31/16 Encounter Start Time: 08:43 Subjective: Intubated -: No agitation - Objective Resuscitation Status: Resuscitation Status FULL:Full Resuscitation MAR Reviewed: Yes Vital Signs & Weight: Vital Signs (12 hours) Temp Pulse Resp BP Pulse Ox 12/31/16 07:45 97.6 F 96 16 100 12/31/16 06:55 96 107/55 L 12/31/16 06:52 92 17 99 12/31/16 05:38 19 12/31/16 04:00 98.3 F 12/31/16 03:57 0 L 12/31/16 02:32 107 H 112/65 12/31/16 02:00 0 L 12/31/16 00:09 90 126/58 L 12/31/16 00:00 97.6 F 0 L 12/30/16 22:17 113 H 124/71 12/30/16 22:00 0 L Weight Admit Weight 171 lb Weight 179 lb 0.246 oz Most Recent Monitor Data Heart Rate from ECG 99 NIBP 107/55 NIBP BP-Mean 63 Respiration from ECG 16 SpO2 99 I&O: 12/30/16 12/31/16 01/01/17 06:59 06:59 06:59 Intake Total 3796 5315.6 Output Total 699 2646 Balance 3097 2669.6 Result Diagrams: 12/31/16 07:01 12/31/16 07:01 Phys Exam - Physical Examination Constitutional: NAD HEENT: moist MMs, sclera anicteric Neck: no nodes, no JVD Intubated Cardiovascular: no significant murmur, no rub Gastrointestinal: soft, non-tender, positive bowel sounds Deviation from normal: unable to assess Skin: normal turgor, cap refill <2 seconds Dx/Plan (1) Hypotension Status: Acute (2) S/P laparoscopic cholecystectomy Code(s): Z90.49 - ACQUIRED ABSENCE OF OTHER SPECIFIED PARTS OF DIGESTIVE TRACT Status: Acute (3) Anemia, normocytic normochromic Code(s): D64.9 - ANEMIA, UNSPECIFIED Status: Chronic - Plan * s/p cholecystectomy and biliary drain: ? biliary leak (biliary drain removed) - ERCP with plastic biliary stent placement and EGD with control of hemorrhage ( performed on 12-30-16) * Acute blood loss anemia 2/2 GI bleed: appreciate GI input, IV PPI, check serial H/H * Shock 2/2 Sepsis vs. Volume depletion/Hemorrhage: appreciate pulm input, monitor BP closely in ICU, blood cxs, abx * MONIQUE: avoid nephrotoxic agents, check renal labs in AM * Fungemia: Start Diflucan IV, consult ID, check labs in AM
[2016-12-31] MEDS: Micafungin 100 MG in Sodium Chloride 0.9% 100 ML IVPB SCH (12:47)
[2016-12-31 14:18] LABS: Hematocrit 22.2 % (42.0-52.0)
[2016-12-31 14:32] LABS: Modified Allen's Test NOT DONE; Oxyhemoglobin 95.4 % (94.0-97.0); Sodium 145 mmol/L (135-148); Vent YES
[2016-12-31 14:33] LABS: Mechanical Tidal Volume 500 ml; Mode SIMV/PSV; Pressure Support 10 cmH2O
--- NOTE | 2016-12-31 16:11 | PRG ---
DATE OF SERVICE: 12/31/2016 SUBJECTIVE: Mr. Ng remains intubated on the ventilator. He has thick dark secretions suctioned from his lungs. OBJECTIVE: VITAL SIGNS: Temperature 98.0, pulse is in the 106 range, blood pressure 93/43 to 119/53. GENERAL: He is lightly sedated. He will gently squeeze my fingers on command. LUNGS: Clear to auscultation anteriorly. HEART: Tachycardic S1, S2. ABDOMEN: Distended and unable to auscultate bowel sounds. His abdomen is soft. It does not guard. EXTREMITIES: 1+ lower extremity edema. LABORATORY DATA: White blood cell count 5.9, hemoglobin is 7.5, platelets 184 and he is status post 2 units transfusion yesterday afternoon. INR is 1.6, creatinine 2.89, albumin 2.3. IMPRESSION: 1. High grade bile leak. This appears to be from the cystic duct stump. He has contrast and air i n the abdomen from injection of the contrast into the bile duct and then air passing under pressure from the scope through the stent. The stent is now in place and it was draining bile well yesterday . His bilirubin is normal at 1.2. 2. Coagulopathy. This may be due to dietary factors plus antibiotics plus bile leak. If he contin ues to show signs of bleeding, then he can be given vitamin K. 3. Anemia. His hemoglobin is 7.5 today after 2 units transfusion. He still had some dark aspirate from the NG tube. He has had no bowel movement. PLAN: 1. He is on broad spectrum antibiotics. 2. We will give a dose of vitamin K. 3. Continue to follow the trend of the hemoglobin daily and evaluate for overt bleeding. 4. He has been started on Diflucan as he has grown yeast in 2 blood cultures.
--- NOTE | 2016-12-31 18:13 | PRG ---
NEPHROLOGY PROGRESS NOTE DATE OF SERVICE: 12/31/2016 SUBJECTIVE: The patient was seen and examined in ICU and intubated today, not responding. OBJECTIVE: GENERAL: An elderly male who was intubated. VITAL SIGNS: Temperature 97.6, pulse 97, respirations 19 and blood pressure 100/42. HEENT: Intubated. CARDIOVASCULAR: S1 and S2 heard. Rate and rhythm regular. RESPIRATORY: Coarse breath sounds. GASTROINTESTINAL: Abdomen is soft. MUSCULOSKELETAL: 1+ edema. DERMATOLOGIC: No skin rashes. NEUROLOGIC: Intubated. LABORATORY DATA: Hemoglobin is 8.1 and WBC is 5.9. Potassium is 3.0, BUN is 43 and creatinine is 2 .8. ASSESSMENT AND PLAN: 1. Acute kidney injury, multifactorial and currently on hydration. Patient is intubated on 150 mL per hour, monitor closely. 2. Lactic acidosis. 3. Hypoalbuminemia. 4. Acidosis, better. 5. Anemia. 6. Continue hydration as tolerated. Urine output seems to be better. Avoid nephrotoxins. We will follow. Replace potassium, most likely from the bicarbonate drip. 7. Hypokalemia. Overall, prognosis remains poor. We will follow.
[2016-12-31] MEDS ORDERED: Potassium Phosphate 30 MMOL in Sodium Chloride 0.9% 250 ML 250 ML IVPB SCH (20:00)
[2016-12-31] MEDS: Norepinephrine 8 MG/0.9% NS 250 ML IVPB PRN (21:58)
[2016-12-31 23:22] LABS: Hematocrit 26.4 % (42.0-52.0)
--- NOTE | 2017-01-01 00:16 | PRG ---
DATE OF SERVICE: 12/31/2016 SUBJECTIVE: Mr. Ng is intubated after yesterday's procedure. Findings were discussed with Dr. Morin. OBJECTIVE: VITAL SIGNS: Temperature of 98, pulse 93, blood pressure 93/43 art line, 111/54 manual on cuff. LUNGS: Clear. HEART: Regular. ABDOMEN: Slightly protuberant. AUNDREA drain is still draining 270 today. Urine 275 today. LABORATORY STUDIES: Hemoglobin is 7.5 to 8.1 this morning, white count 9.5. INR 1.6. PH 7.49. Ch emistries: Sodium 147, potassium 3, BUN and creatinine are 43 and 2.89. Liver function tests ana cristina l. ASSESSMENT: 1. Bile leak cystic duct stump leak. 2. Post sphincterotomy bleed, controlled yesterday, transfuse 1 unit of blood. RECOMMENDATIONS: 1. Continue IV PPI. 2. Extubation per General Surgery. 3. For the bile leak, I would agree with broad-spectrum antibiotics. If bile leak continues, could consider transfer as an outpatient to [place] for the questionable role of stents for large h igh volume bile leaks. If he does not improve and remains ventilated and it is felt that the leakin g needs to be closed in a surgical fashion, he will need to be transferred to [place] for those type of interventions are not available here.
[2017-01-01] MEDS: Pantoprazole 80 MG, Admixture Fee 1 EACH in Sodium Chloride 0.9% 100 ML IVPB SCH ×2 (00:56→19:43)
[2017-01-01] MEDS: Piperacillin/Tazobactam 2.25 GM in Sodium Chloride 0.9% 100 ML IVPB SCH ×5 (00:56→23:56)
[2017-01-01] MEDS: Sodium Bicarbonate 150 MEQ, Admixture Fee 1 EACH in Dextrose 5% in Water 1,000 ML IV SCH ×6 (00:57→08:10)
[2017-01-01 05:14] LABS: Anion Gap 17 mmol/L (10-20); BUN (Urea Nitrogen) 45 mg/dL (8.4-25.7); Calc. Creatinine Clearance 20 mL/min (70-130); Calcium 6.9 mg/dL (7.8-10.44); Carbon Dioxide 25 mmol/L (23-31); Chloride 106 mmol/L (98-107); Estimated GFR-MDRD 21; Magnesium 1.8 mg/dL (1.6-2.6); Phosphorus 3.3 mg/dL (2.3-4.7)
[2017-01-01 05:15] LABS: Band 20 % (5-11); Hematocrit 24.4 % (42.0-52.0); Mean Platelet Volume 7.6 fL (7.4-10.4); Neutrophil 76 % (42-75); Red Blood Cell (RBC) Count 2.64 mill/uL (4.70-6.10); White Blood Cell (WBC) Count 10.4 thou/uL (4.8-10.8)
[2017-01-01] MEDS: Amiodarone HCl 450 MG, Admixture Fee 1 EACH in Dextrose 5% in Water 250 ML IVPB SCH ×6 (08:10→19:43)
[2017-01-01 08:28] LABS: Oxyhemoglobin 95.4 % (94.0-97.0); Sodium 143 mmol/L (135-148)
[2017-01-01 08:29] LABS: Modified Allen's Test NOT DONE; Vent YES
[2017-01-01 08:30] LABS: Mechanical Tidal Volume 500 ml; Mode SIMV/PSV; Pressure Support 10 cmH2O
[2017-01-01] MEDS ORDERED: Potassium Chloride 40 MEQ in Sodium Chloride 0.9% 500 ML IVPB SCH (08:30)
[2017-01-01] MEDS ORDERED: Magnesium Sulfate 4 GM in Sodium Chloride 0.9% 250 ML 250 ML IVPB SCH (08:30)
[2017-01-01] MEDS ORDERED: Sodium Chloride 0.45% 1,000 ML IV SCH ×2 (09:00→12:45)
[2017-01-01] MEDS ORDERED: Midazolam HCl 2 mg/2 ml Vial ONE (09:28)
[2017-01-01] MEDS: Norepinephrine 8 MG/0.9% NS 250 ML IVPB PRN ×2 (10:07→16:49)
[2017-01-01] MEDS ORDERED: Phytonadione 10 MG/ML AMP SC SCH (10:15)
[2017-01-01] MEDS ORDERED: Furosemide 100 mg/100 ml in NS IVPB SCH (10:30)
[2017-01-01] MEDS ORDERED: Midazolam HCl 2 mg/2 ml Vial IVP SCH (10:30)
[2017-01-01] MEDS: Furosemide 100 MG in Sodium Chloride 0.9% 90 ML IVPB SCH (11:24)
[2017-01-01] MEDS: Micafungin 100 MG in Sodium Chloride 0.9% 100 ML IVPB SCH (13:37)
--- NOTE | 2017-01-01 13:45 | PDOC.PN ---
- Subjective Encounter Start Date: 01/01/17 Encounter Start Time: 13:42 Patient seen and examined, no family at bedside. - Objective Resuscitation Status: Resuscitation Status FULL:Full Resuscitation Vital Signs & Weight: Vital Signs (12 hours) Temp Pulse Resp BP Pulse Ox 01/01/17 08:16 120 H 133/58 L 01/01/17 08:13 118 H 18 100 01/01/17 08:00 98.9 F 120 H 19 100 01/01/17 06:00 19 01/01/17 04:00 99.3 F 19 01/01/17 02:00 19 Weight Admit Weight 171 lb Weight 179 lb 0.246 oz Most Recent Monitor Data Heart Rate from ECG 108 NIBP 129/69 NIBP BP-Mean 89 Respiration from ECG 19 SpO2 100 I&O: 12/31/16 01/01/17 01/02/17 06:59 06:59 06:59 Intake Total 5665.6 5363.7 Output Total 2646 1438 300 Balance 3019.6 3925.7 -300 Result Diagrams: 01/01/17 04:15 01/01/17 04:15 Phys Exam - Physical Examination Constitutional: NAD intubated/sedated HEENT: PERRLA Neck: no nodes, no JVD coarse breath sounds B/L, NG tube in place Cardiovascular: RRR, no significant murmur subclavian central line in place Gastrointestinal: soft, non-tender, no distention Musculoskeletal: pulses present, edema present (1+ pitting edema B/L LE) sedated Lymphatic: no nodes Deviation from normal: sedated Dx/Plan (1) Acute kidney failure Status: Acute (2) Shock Code(s): R57.9 - SHOCK, UNSPECIFIED Status: Acute (3) Hypotension Status: Acute (4) S/P laparoscopic cholecystectomy Code(s): Z90.49 - ACQUIRED ABSENCE OF OTHER SPECIFIED PARTS OF DIGESTIVE TRACT Status: Acute (5) Anemia, normocytic normochromic Code(s): D64.9 - ANEMIA, UNSPECIFIED Status: Chronic (6) Hypophosphatemia Code(s): E83.39 - OTHER DISORDERS OF PHOSPHORUS METABOLISM Status: Resolved - Plan * cont abx and pressors for now * vent management per pulmonary * afebrile in last 24 hours * no changes in plan of care for now * no family at bedside * further management as per consultants
--- NOTE | 2017-01-01 14:25 | PRG ---
DATE OF SERVICE: 01/01/2017 SUBJECTIVE: Mr. Ng is sedated on the ventilator. He does briefly respond to verbal stimulus. He underwent bronchoscopy this morning. He has had again bloody aspirate from the NG tube. PHYSICAL EXAMINATION: VITAL SIGNS: Temperature 98.9, pulse 120, blood pressure 133/58. GENERAL: He is lightly sedated. LUNGS: Have coarse breath sounds bilaterally. HEART: Tachycardic, S1, S2. ABDOMEN: Soft. Bowel sounds are hypoactive. Nondistended. EXTREMITIES: 1+ pitting lower extremity edema. LABORATORY DATA: White blood cell count 10.4, hemoglobin 8.1. This is status post 1 unit transfusi on last night, up from 7.5. INR 1.6 yesterday. Creatinine 2.91. IMPRESSION: 1. High grade bile leak. 2. Post-sphincterotomy bleed. Status post cautery. He likely is oozing from this site again. His hemoglobin responded appropriately to transfusion last night. We will continue to follow the trend of his hemoglobin and transfuse as necessary. I would try to avoid further invasive procedures at this point. 3. Elevated INR. We will give a dose of vitamin K as this is likely due to dietary factors plus th e antibiotics. PLAN: 1. He is on antibiotics. 2. He has been started on pressors. 3. Transfuse as needed. 4. He is on Diflucan for fungemia. 5. Vitamin K. 6. Recheck coags in the morning.
--- NOTE | 2017-01-01 15:35 | PRG ---
DATE OF SERVICE: 01/01/2017 SUBJECTIVE: Mr. Ng is sedated on mechanical ventilator support. He awakens , denies any pain at this time. He was restarted on norepinephrine at 10 mcg per minute overnight. Urinary output currently is in excess of 0.5 mL per kilogram per hour. OBJECTIVE: VITAL SIGNS: Current vital signs on these settings include blood pressure 133/ 58, pulse 118, respirations 18, temperature 98.9 degrees Fahrenheit, oxygen saturation is 100% on FIO2 of 45%. HEENT: Reveals normocephalic and atraumatic with bilateral scleral edema. He has no jugular venous distention noted. HEART: Reveals regular rate with sinus tachycardia. No murmurs or gallops auscultated. LUNGS: Clear to auscultation bilaterally. His breathing is regular and unlabored. ABDOMEN: Soft, minimal tenderness to palpation. The abdominal drain returned 350 mL of bile over the last 24 hours, which is improved over the 750 mL returned 24 hours previously. EXTREMITIES: Reveal 2+ radial and pedal pulses bilaterally. He has no ankle edema present. NEUROLOGIC: Reveals no focal deficits present. PERTINENT LABORATORY FINDINGS: Today include CBC with 10,400 white blood cells , hemoglobin 8.1, hematocrit is 24.4, platelet count is 173,000. Metabolic profile today, sodium 145, potassium is 3.3, chloride is 106, bicarbonate 25, BUN is 45, creatinine is 2.91, stable. Glucose is 160. Magnesium is 1.8 and phosphorus is 3.3. IMPRESSION: 1. Acute respiratory failure, improving. The patient has thick purulent pulmonary secretions on suctioning. Therefore, will require diagnostic and possible therapeutic bronchoscopy. 2. Acute hypokalemia. 3. Acute hypomagnesemia. 4. Stable acute kidney injury. PLAN: 1. Continue with bicarbonate infusion. We will start furosemide by continuous infusion. 2. We will correct all abnormal electrolytes. Above findings and plan will be discussed with the patient's power of civil rights attorney. I placed a phone call and was unable to reach him. I did speak with the patient 's , however who indicated understanding of the information I provided her with regards to bronchoscopy. Total critical care time is 45 minutes. [facility]
--- NOTE | 2017-01-01 17:06 | PRG ---
DATE OF SERVICE: 01/01/2017 SUBJECTIVE: The patient was seen and examined in the ICU, intubated and not responding. PHYSICAL EXAMINATION: GENERAL: This is an elderly male, intubated. VITAL SIGNS: Temperature 98.2, pulse 112, respiratory rate 16, blood pressure 103/52. HEENT: Intubated. CARDIOVASCULAR: S1, S2 heard, tachycardic. RESPIRATORY: Coarse breath sounds. GASTROINTESTINAL: Abdomen is soft. MUSCULOSKELETAL: 1+ edema. DERMATOLOGIC: No skin rash. NEUROLOGIC: Intubated. LABORATORY DATA: Hemoglobin is 8.1, potassium is 3.3, BUN is 45, and creatinine is 2.9. ASSESSMENT AND PLAN: 1. Acute kidney injury secondary to volume depletion and sepsis. Renal function is stable. Urine output is improving. Continue on intravenous fluids and agree with pressors to keep systolic more t parker 90. Continues to have increased output. We will change IV fluids to half normal saline at 100 mL per hour, monitor sodium closely. 2. Lactic acidosis. 3. Hypoalbuminemia. 4. Anemia. 5. Hypokalemia secondary to bicarbonate. 6. Alkalosis. We will stop bicarbonate drip for now and monitor levels closely. We will continue to follow.
--- NOTE | 2017-01-01 17:55 | OP ---
DATE OF PROCEDURE: 01/01/2017 PREOPERATIVE DIAGNOSES: 1. Acute respiratory failure 2. Likely pulmonary aspiration. POSTOPERATIVE DIAGNOSES: 1. Acute respiratory failure. 2. Likely pulmonary aspiration. PROCEDURES PERFORMED: Fiberoptic bronchoscopy will bronchioalveolar lavage. INDICATIONS FOR PROCEDURE: An 89-year-old man who is status post repeat ERCP. The patient is in po st-procedure respiratory failure requiring minimum ventilatory support. Pulmonary secretions today returned some gross purulent fluid. The decision was made therefore to perform a diagnostic and pos sible therapeutic bronchoscopy. INDICATIONS FOR PROCEDURE: I have attempted to obtain consent from the power of city attorney via teleph one conversation. I was unable to reach him. I did speak with his who tried twice to reach [facility] power of city attorney and was unable to do so. I am therefore proceeding with this procedure which I have deemed at this time as urgent. The patient is on full mechanical ventilator support. He is gi nathaniel midazolam 1 mg followed by fentanyl which is going by continuous infusion. DESCRIPTION OF PROCEDURE: Fiberoptic bronchoscope was introduced through the previous endotracheal tube and advanced to visualize the chandrakant. The scope was directed to the right upper lobe and then finally to the bronchus intermedius and right lower lobes where some thick purulent secretions were encountered, irrigated with saline and evacuated with suction. This was sent to microbiology for cu lture. The scope was then withdrawn into the left upper and left lower lobes. Again, some thick se cretions were evacuated with suction. No mucous plugs were evident. The patient tolerated this pro cedure without any apparent complications. Normal tracheobronchial mucosa was evaluated as the scop e was withdrawn.
[2017-01-02 03:57] LABS: Prothrombin Time 16.4 SEC (12.0-14.7)
[2017-01-02 03:58] LABS: PTT 49.7 SEC (22.9-36.1)
[2017-01-02 04:16] LABS: ALT (SGPT) Less than 7 U/L (8-55); AST (SGOT) 13 U/L (5-34); Alkaline Phosphatase 92 U/L (40-150); Anion Gap 18 mmol/L (10-20); BUN (Urea Nitrogen) 50 mg/dL (8.4-25.7); Bilirubin, Direct 1.2 mg/dL (0.1-0.3); Bilirubin, Total 1.7 mg/dL (0.2-1.2); Calc. Creatinine Clearance 18 mL/min (70-130); Calcium 6.8 mg/dL (7.8-10.44); Carbon Dioxide 25 mmol/L (23-31); Chloride 108 mmol/L (98-107); Estimated GFR-MDRD 19; Magnesium 2.2 mg/dL (1.6-2.6); Phosphorus 4.1 mg/dL (2.3-4.7); Protein, Total 4.4 g/dL (5.8-8.1)
[2017-01-02 04:45] LABS: Hematocrit 18.5 % (42.0-52.0); Mean Platelet Volume 7.4 fL (7.4-10.4); Red Blood Cell (RBC) Count 1.98 mill/uL (4.70-6.10); White Blood Cell (WBC) Count 9.1 thou/uL (4.8-10.8)
[2017-01-02 05:22] LABS: Band 7 % (5-11); Metamyelocyte 3 % (0-0); Neutrophil 71 % (42-75); Reactive Lymphocytes 1 % (0-10)
[2017-01-02] MEDS: Pantoprazole 80 MG, Admixture Fee 1 EACH in Sodium Chloride 0.9% 100 ML IVPB SCH ×2 (05:24→15:07)
[2017-01-02] MEDS: Norepinephrine 8 MG/0.9% NS 250 ML IVPB PRN ×3 (05:24→23:22)
[2017-01-02] MEDS: Piperacillin/Tazobactam 2.25 GM in Sodium Chloride 0.9% 100 ML IVPB SCH ×4 (05:30→23:21)
[2017-01-02] MEDS: Furosemide 100 MG in Sodium Chloride 0.9% 90 ML IVPB SCH (05:31)
--- NOTE | 2017-01-02 12:11 | PDOC.PN ---
- Subjective Encounter Start Date: 01/02/17 Encounter Start Time: 12:08 Patient seen and examined, recently extubated, no other changes in last 24 hours. - Objective Resuscitation Status: Resuscitation Status FULL:Full Resuscitation Vital Signs & Weight: Vital Signs (12 hours) Temp Pulse Pulse Resp BP BP Pulse Ox 01/02/17 11:49 73 20 99 01/02/17 10:25 98.8 F 116 H 21 H 128/52 L 94 L 01/02/17 10:06 98.7 F 103 H 19 116/68 99 01/02/17 10:00 98.7 F 109 H 18 104 H 01/02/17 08:56 107 H 142/48 H 01/02/17 08:00 13 01/02/17 07:31 98.8 F 104 H 18 98 01/02/17 07:00 98.8 F 01/02/17 06:45 98.8 F 107 H 14 118/50 L 01/02/17 06:35 101 H 122/51 L 01/02/17 06:34 97 17 100 01/02/17 06:00 16 01/02/17 04:00 98.3 F 18 01/02/17 02:40 105 H 87/44 L 01/02/17 02:00 16 01/02/17 00:44 105 H 15 100 Weight Admit Weight 171 lb Weight 180 lb 3.2 oz Most Recent Monitor Data Heart Rate from ECG 92 NIBP 107/43 NIBP BP-Mean 81 Respiration from ECG 15 SpO2 98 I&O: 01/01/17 01/02/17 01/03/17 06:59 06:59 06:59 Intake Total 5363.7 5513.7 150 Output Total 1438 2397 375 Balance 3925.7 3116.7 -225 Result Diagrams: 01/02/17 04:30 01/02/17 03:30 Phys Exam - Physical Examination Constitutional: NAD HEENT: PERRLA, moist MMs NG tube in place with blood secretion Neck: no nodes, no JVD coarse breath sounds, symmetric expansion Cardiovascular: no significant murmur, no rub tachy Gastrointestinal: soft, non-tender Musculoskeletal: pulses present, edema present (trace) Dx/Plan (1) Acute kidney failure Status: Acute (2) Shock Code(s): R57.9 - SHOCK, UNSPECIFIED Status: Acute (3) Hypotension Status: Acute (4) S/P laparoscopic cholecystectomy Code(s): Z90.49 - ACQUIRED ABSENCE OF OTHER SPECIFIED PARTS OF DIGESTIVE TRACT Status: Acute (5) Anemia, normocytic normochromic Code(s): D64.9 - ANEMIA, UNSPECIFIED Status: Chronic - Plan * Transfuse PRBC today, will repeat Hgb to monitor * source of bleeding possibly stomach? will defer management to subspecialists * continue pressors for BP, remains in shock * prognosis is critical - guarded * patient has a MPOA, case d/w him, conclusion arrived that if patient's condition is deteriorating for 48-72hrs consecutively then hospice/palliative care will be discussed, otherwise patient is to receive aggressive medical management only. Advance directive copy signed by patient himself is placed in chart
[2017-01-02] MEDS: Amiodarone HCl 450 MG, Admixture Fee 1 EACH in Dextrose 5% in Water 250 ML IVPB SCH ×3 (12:21)
--- NOTE | 2017-01-02 12:28 | PRG ---
DATE OF SERVICE: 01/02/2017 SUBJECTIVE: Mr. Ng is sedated on full mechanical ventilator support. Blood pressure is supported with norepinephrine at 30 mcg per minute. The patient is sedated with fentanyl at 30 mcg per hour. Urinary output is reported above 0.5 mL/kg/hour. The patient when sedation is lightened, moves all extremities and follows commands. Sidney coma scale is notable at E3, M6, V1T. He has bloody nasogastric tube secretions. The abdominal drain returns decreasing bilious drainage. OBJECTIVE: VITAL SIGNS: Today includes blood pressure which is 142/48, pulse 107, respiratory rate is 16, temperature is 98.8 degrees Fahrenheit, oxygen saturation 100% on FiO2 of 28% on SIMV. HEENT: Examination reveals normocephalic and atraumatic. The patient has bilateral scleral edema present. No jugular venous distention noted. HEART: Reveals regular rate with sinus tachycardia. No murmurs or gallops auscultated. LUNGS: Reveals bilateral rhonchi. Breathing is regular and unlabored. ABDOMEN: Soft, nontender, and nondistended. There is bag in the right upper quadrant of the abdomen, which returns bilious drainage in moderate amount. EXTREMITIES: Reveals 2+ radial and pedal pulses bilaterally. He has ankle and pretibial edema present. He also has significant scrotal edema present. NEUROLOGIC: Otherwise, reveals no focal deficits present. LABORATORY DATA: Pertinent laboratory findings today includes CBC with 9,100 white blood cells, hemoglobin 6.0, hematocrit is 18.5, and platelet count is 153 ,000. Metabolic profile: Sodium 147, potassium is 4.3, chloride is 108, bicarbonate 25, BUN 50, creatinine is 3.14, glucose is 122, phosphorus 4.1, magnesium is 2.2, total bilirubin is 1.7, AST and ALT noted at 13 and less than 7 respectively. Alkaline phosphatase is 92. IMPRESSION: 1. Acute respiratory failure, resolving. We will therefore wean the patient's mechanical ventilatory support and extubated the patient as indicated. 2. Acute renal failure, stable. We will continue to monitor urinary output while decreasing total fluids at this time. Gentle diuresis will be continued. 3. Acute blood loss anemia, patient is being transfused with 2 units of packed red blood cells. I will continue to monitor him for hemostasis. Family conference today will be undertaken by the patient's power of privacy attorney and primary service and expectations will be outlined at that time, so as to ascertain our future plans with respect to this patient. There is no acute surgical indication at the moment. Total critical care time: 40 minutes MTDD
[2017-01-02] MEDS: Micafungin 100 MG in Sodium Chloride 0.9% 100 ML IVPB SCH (13:17)
[2017-01-02 13:22] VITALS: BP 119/61
--- NOTE | 2017-01-02 15:35 | PRG ---
DATE OF SERVICE: 01/02/2017 SUBJECTIVE: Patient was seen and examined at ICU. He was just extubated and able to respond well. OBJECTIVE: GENERAL: This is an elderly male. He was just extubated and very lethargic. VITAL SIGNS: Temperature 98.8, pulse 92, respiratory 19, blood pressure 108/50. HEENT: Atraumatic, normocephalic. Oral mucosa is moist. NECK: Supple. CARDIOVASCULAR: S1, S2 heard. Rate and rhythm regular. RESPIRATORY: Clear to auscultation. GASTROINTESTINAL: Abdomen is soft. MUSCULOSKELETAL: No tenderness, no edema. DERMATOLOGIC: No skin rash. NEUROLOGIC: Alert and awake and oriented x3. No focal neurologic deficits. Moving all the extremit ies. PSYCHIATRIC: Mood and affect normal. LABORATORY DATA: Potassium is 4.3, BUN 50, creatinine 3.1. ASSESSMENT AND PLAN: 1. Acute kidney injury on chronic kidney disease. Creatinine getting worse, most likely from the d iuresis, but he is able to be extubated today. We will follow up with Surgery for further recommend ations. 2. Lactic acidosis. 3. Hypoalbuminemia. 4. Anemia. 5. Hypokalemia. 6. Alkalosis, stable. 7. Rule out bleed. Continue supportive care. Renal function is stable. Avoid nephrotoxins. Devyn ally dose all the medicines. Currently on Lasix drip.
[2017-01-02 15:41] LABS: Hematocrit 26.5 % (42.0-52.0)
--- NOTE | 2017-01-02 18:37 | PRG ---
DATE OF SERVICE: 01/02/2017 SUBJECTIVE: Mr. Ng was extubated today. He appeared to be breathing comfortably, currently. H e has an NG tube in place with some coffee ground appearing return. He is still sleepy, but awakes and responds. OBJECTIVE: VITAL SIGNS: His pulse is in the 80s, blood pressure 125/64, temperature 98.2. GENERAL: He is in no acute distress. He arouses to verbal stimuli. LUNGS: Have coarse breath sounds with expiratory bilaterally. HEART: Regular rate and rhythm. ABDOMEN: Soft. No tenderness or guarding. Bowel sounds are present. EXTREMITIES: 1+ lower extremity edema. LABORATORY DATA: White blood cell count 9.1, hemoglobin is 9.0 after 2 units transfusion. His hemo globin was 6.0 this morning. That specimen was likely somewhat diluted, platelets 153. His INR is down to 1.3 today. Creatinine 3.14, bilirubin 1.7, likely from reabsorption AST 13, ALT 7, alkaline phosphatase 92, albumin 1.7. IMPRESSION: 1. High grade bile leak. He is having decreasing output from his drain. Status post sphincterotom y and stent. 2. Post-sphincterotomy bleed. His hemoglobin did drop down further this morning and received 2 uni ts transfusion. It appears to be more with slow ooze. He should be able to discontinue his NG tube at this point. Hopefully, this will help with a swallowing evaluation tomorrow. He might not be r volodymyr for that tomorrow. 3. Respiratory failure. He was able to be extubated today. RECOMMENDATIONS: 1. Continue proton pump inhibitor drip. 2. He is on Diflucan for fungemia.
[2017-01-03 05:17] LABS: Anion Gap 16 mmol/L (10-20); BUN (Urea Nitrogen) 56 mg/dL (8.4-25.7); Calc. Creatinine Clearance 18 mL/min (70-130); Carbon Dioxide 26 mmol/L (23-31); Chloride 108 mmol/L (98-107); Estimated GFR-MDRD 18
[2017-01-03] MEDS: Piperacillin/Tazobactam 2.25 GM in Sodium Chloride 0.9% 100 ML IVPB SCH ×4 (05:27→23:51)
[2017-01-03 05:40] LABS: Band 15 % (5-11); Hematocrit 25.8 % (42.0-52.0); Mean Platelet Volume 8.1 fL (7.4-10.4); Neutrophil 84 % (42-75); Red Blood Cell (RBC) Count 2.83 mill/uL (4.70-6.10); White Blood Cell (WBC) Count 8.5 thou/uL (4.8-10.8)
[2017-01-03] MEDS: Furosemide 100 MG in Sodium Chloride 0.9% 90 ML IVPB SCH (08:00)
--- NOTE | 2017-01-03 10:56 | PDOC.PN ---
- Subjective Encounter Start Date: 01/03/17 Encounter Start Time: 09:15 Pt seen and exmained on rounds. Chart reviewed in its entirety. Kristan sis my first visit with this patient Pt is demented and became agitated with me and start hitting me. Was calmed down easily. Case discussed with his nurse for today, no acute events reported overnight ROS not possible due to dementia - Objective Resuscitation Status: Resuscitation Status FULL:Full Resuscitation MAR Reviewed: Yes Vital Signs & Weight: Vital Signs (12 hours) Temp Pulse Resp Pulse Ox 01/03/17 08:00 97.7 F 01/03/17 06:52 91 20 96 01/03/17 04:00 98.2 F 01/03/17 00:00 98.4 F 01/02/17 23:25 98 Weight Admit Weight 171 lb Weight 181 lb Most Recent Monitor Data Heart Rate from ECG 94 NIBP 120/61 NIBP BP-Mean 77 Respiration from ECG 19 SpO2 97 I&O: 01/02/17 01/03/17 01/04/17 06:59 06:59 06:59 Intake Total 5513.7 2555.1 Output Total 2397 2540 640 Balance 3116.7 15.1 -640 Result Diagrams: 01/03/17 03:30 01/03/17 03:30 Radiology Reviewed by me: Yes EKG Reviewed by me: Yes Phys Exam - Physical Examination Constitutional: NAD HEENT: PERRLA, moist MMs, sclera anicteric, oral pharynx no lesions Neck: no nodes, no JVD, supple, full ROM Respiratory: no wheezing, no rales, no rhonchi, clear to auscultation bilateral Cardiovascular: RRR, no significant murmur, no rub Gastrointestinal: soft, non-tender, no distention, positive bowel sounds Musculoskeletal: pulses present, edema present X 4 extremeties, almost anasarca Neurological: normal sensation, moves all 4 limbs Lymphatic: no nodes Psychiatric: normal affect Skin: no rash, cap refill <2 seconds Dx/Plan (1) GI bleed Code(s): K92.2 - GASTROINTESTINAL HEMORRHAGE, UNSPECIFIED Status: Acute Comment: Dr Morin following/GI following. follow up on their result.s H/H stable today (2) Acute blood loss anemia Code(s): D62 - ACUTE POSTHEMORRHAGIC ANEMIA Status: Acute Comment: S/P 4 U PRBCs, 2U FFP (3) Acute kidney failure Status: Resolved Qualifiers: Acute renal failure type: with acute tubular necrosis Qualified Code(s): N17.0 - Acute kidney failure with tubular necrosis (4) Hypotension Status: Resolved Qualifiers: Hypotension type: other hypotension type Qualified Code(s): I95.89 - Other hypotension Comment: due to septic shock. Off levophed now (5) Shock Code(s): R57.9 - SHOCK, UNSPECIFIED Status: Resolved (6) Choledocholithiasis Code(s): K80.50 - CALCULUS OF BILE DUCT W/O CHOLANGITIS OR CHOLECYST W/O OBST Status: Resolved (7) S/P laparoscopic cholecystectomy Code(s): Z90.49 - ACQUIRED ABSENCE OF OTHER SPECIFIED PARTS OF DIGESTIVE TRACT Status: Resolved (8) BPH (benign prostatic hyperplasia) Code(s): N40.0 - BENIGN PROSTATIC HYPERPLASIA WITHOUT LOWER URINRY TRACT SYMP Status: Chronic (9) Dementia Code(s): F03.90 - UNSPECIFIED DEMENTIA WITHOUT BEHAVIORAL DISTURBANCE Status: Chronic Qualifiers: Dementia type: vascular dementia Dementia behavioral disturbance: with behavioral disturbance Qualified Code(s): F01.51 - Vascular dementia with behavioral disturbance (10) Central line-associated bloodstream infection Code(s): T80.211A - BLOODSTREAM INFECTION DUE TO CENTRAL VENOUS CATHETER, INIT Status: Acute Comment: suspected to be line assoicated, scould be related to abd infection. Line in, repeat BCx ordered. was on micafungin, ID following. Have changed to fluconazole as C. albican almost universally susceptible - Plan cont current plan of care, continue antibiotics, PT/OT * .
--- NOTE | 2017-01-03 11:22 | PRG ---
DATE OF SERVICE: 01/03/2017 SUBJECTIVE: An 89-year-old man who is status post laparoscopic cholecystectomy and ERCP. The posto perative period was complicated by acute respiratory failure. The patient has been extubated since yesterday. Currently, he is awake and alert. He denies any abdominal pain. He moves all extremities and answers questions appropriately. He is having urinary output in excess of 0.5 mL per kilogram per hour. He remains on furosemide at 5 mg per hour. OBJECTIVE: VITAL SIGNS: Today includes blood pressure 120/64, pulse is 94, respiratory rate is 19, temperature is 97.7 degrees Fahrenheit. Oxygen saturation is 98% on 3 liters by nasal cannula oxygen. HEENT: Reveals normocephalic and atraumatic. Pupils are equal, round, and reactive to light and ac commodation. The patient has no jugular venous distention noted. HEART: Reveals irregular rate and rhythm, although rate controlled. He is on amiodarone by continu ous infusion. LUNGS: Clear to auscultation bilaterally. Breathing is regular and unlabored. ABDOMEN: Soft and moderately distended, but nontender to palpation. The abdominal drain returns 37 0 mL of bilious fluid. NEUROLOGIC: Reveals no focal deficits present. PERTINENT LABORATORY FINDINGS: Today includes CBC with 8500 white blood cells, hemoglobin and hemat ocrit stable at 8.8 and 25.8 respectively. Of note, the patient received 2 units of packed red blood cells for hemoglobin of 6 yesterday. Platelet count today is noted at 100,000. Metabolic profile: Sodium 146, potassium is 3.9, chloride is 108, bicarbonate 26, BUN 56, creatinin e is 3.26 and glucose is 102. IMPRESSION: 1. Resolving acute respiratory insufficiency. 2. Acute kidney injury, stable. We will decrease furosemide infusion to 3 mg per hour. We will co ntinue to follow urinary output in the interim. The patient will be evaluated by Speech Pathology for swallow function and will advance diet as meg lombardo.
[2017-01-03] MEDS: Pantoprazole 80 MG, Admixture Fee 1 EACH in Sodium Chloride 0.9% 100 ML IVPB SCH ×2 (12:03→23:51)
--- NOTE | 2017-01-03 12:06 | PRG ---
DATE OF SERVICE: 01/03/2017 SUBJECTIVE: An 89-year-old gentleman being seen for acute kidney injury. The patient denies any na usea, vomiting or chest pain. PHYSICAL EXAMINATION: GENERAL: Patient is resting. VITAL SIGNS: Afebrile, pulse 75, breathing at 16, blood pressure 113/72. HEAD/NECK: Normocephalic, atraumatic. EYES: EOMI. No deformity. EARS: Clear. No ulcers. NOSE: Intact. No lesions. MOUTH: Clear. No discharge. THROAT: Clear. No exudate. LUNGS: Clear. No crackles. CARDIAC: S1, S2. No rub. ABDOMEN: Benign. BS+. GENITALIA/RECTUM: Hidalgo absent. BACK/EXTREMITIES: Lower extremity shows edema. Ulcer-. NEUROLOGICAL: Alert and motor intact. SKIN: Rash- Bruise- LYMPHATICS: Edema- Ulcer-. LABORATORY DATA: Show sodium 146, creatinine 3.2. ASSESSMENT AND RECOMMENDATIONS: 1. Chronic kidney disease stage 4, stable. 2. Hypertension, stable. 3. Acute kidney injury, stable. No indication for dialysis. 4. Hypernatremia, we will recommend increase free water and monitor sodium closely. No urgent clif cation for dialysis.
[2017-01-03] MEDS: Micafungin 100 MG in Sodium Chloride 0.9% 100 ML IVPB SCH (13:27)
--- NOTE | 2017-01-03 13:27 | PRG ---
DATE OF SERVICE: 01/03/2017 SUBJECTIVE: Mr. Ng had 2 maroon stools yesterday. He has had no nausea or vomiting. He report s no abdominal pain currently. OBJECTIVE: VITAL SIGNS: Pulse 105, blood pressure 112/59, temperature 97.7. GENERAL: He is in no acute distress. He has a cough. LUNGS: His lungs have coarse breath sounds bilaterally. HEART: Tachycardic S1, S2. ABDOMEN: Soft, no obvious tenderness. His bowel sounds are present. EXTREMITIES: 1+ lower extremity edema. LABORATORY DATA: His hemoglobin is 8.8 today, stable from yesterday. He received 2 units transfusi on yesterday prior to the afternoon hemoglobin of 9. IMPRESSION: 1. Post-sphincterotomy bleed. His hemoglobin was stable today. We will continue to follow this. Continue acid suppression. 2. High grade bile leak. He is status post biliary sphincterotomy and stent and seems to be improv ing from this standpoint. 3. Respiratory failure improved. He was extubated yesterday. RECOMMENDATIONS: 1. Continue the proton pump inhibitor drip for now. 2. Speech pathology is evaluating his swallowing status.
--- NOTE | 2017-01-03 14:05 | CON ---
DATE OF CONSULTATION: 01/03/2017 REASON FOR CONSULTATION: Fungemia. HISTORY OF PRESENT ILLNESS: Mr. Ng is an 89-year-old patient who has a history of BPH and hyper tension, and some form of brain malignancy who was admitted in December of this year with nausea, v omiting, and diffuse abdominal pain, some diarrhea associated with it. Initial assessment was acute cholecystitis plus choledocholithiasis and the patient underwent evaluation and was diagnosed with pancreatitis and choledocholithiasis. He underwent ERCP and then a laparoscopic cholecystectomy. T he pathology demonstrated acute and chronic cholecystitis. The patient's lipase peaked at 72 theref ore he really truly did not have pancreatitis. Microbiology then, there were no samples submitted f rom that admission. The patient was discharged on 12/28/2016, 5 days after admission. The discharg e meds included Norvasc, Augmentin, Dulcolax, Pepcid, Proscar, Linzess, meclizine, metoprolol, Verenice x, Exelon, Florastor, Carafate. During that admission the patient had a drain placed in the gallbla dder fossa region which was left in because of the amount of drainage. He was given Zosyn during e hospital stay and he was supposed to come back to see Dr. Chen to have the drain removed. The andi castillo was readmitted on 12/29/2016 with coffee ground emesis. Readmission was pretty much the next day after discharge. The patient on arrival was tachycardic. An NG tube was placed in [facility] Room and coffee-ground material was retrieved from there. Initial hemoglobin 10.3 and a la ctic acid 8.4. He was given Levophed and IV fluids, Protonix, albumin. In the emergency room, bili konstantin drain was removed and a concern for a biliary leak was established. Initial exam showed a supple neck, coarse lung sounds, but no wheezing, no inspiratory crackles. He art exam was normal except for tachycardia. The abdomen was mildly uncomfortable and tender, but no peritoneal signs noted. Consultation with Gastroenterology and with General Surgery obtained. The patient underwent ERCP which demonstrated esophagitis and the patient also was noticed to have b leeding from the cystic duct which did not have any clamps on it at the time of the evaluation. The refore, Dr. Morin proceeded to place a biliary stent in the area. The patient had a central line pl aced by Dr. Chen 12/29/2016, the same day of admission. On the day of admission he had 2 sets of b lood cultures which have yielded presumptive Alice albicans. Samples were obtained at 2:43 p.m. a nd at 2:39 p.m. from each arm. The timing of the insertion of the central line was about 2 hours be fore the blood cultures were inserted. Currently, Mr. Ng is awake. He is quite obtunded, but h e establishes eye contact. He tries to reply to questions, but I cannot understand his answers. He will follow some commands. According to the nurse, he has had no headaches, no respiratory difficu lties, no abdominal pain and no diarrhea. PAST MEDICAL HISTORY: Hypertension, muscular dystrophy, pneumonia, some form of brain tumor, not cl ear which, recent episode of acute cholecystitis managed with a laparoscopic cholecystectomy and ERC P, dementia, BPH. PAST SURGICAL HISTORY: Skin cancer of the hand removed, appendectomy and the recent surgical proced ures. SOCIAL HISTORY: Lives in [facility], never a smoker. FAMILY HISTORY: Noncontributory. ALLERGIES: None. CURRENT MEDICATIONS: DuoNeb, amiodarone, Dulcolax, fentanyl, furosemide, micafungin, norepinephrine , pantoprazole. . PHYSICAL EXAMINATION: VITAL SIGNS: Temperature has been normal since admission, the blood pressure 112/59, pulse 100, O2 sat 100% on 2 liters nasal cannula. SKIN: Shows the left subclavian triple lumen catheter and a Hidalgo catheter in place. His I's and O 's have been positive for the most part, have been negative today for the first time. There is no l ymphadenopathy. HEENT: Ocular movements are conjugate. Pale conjunctivae. The oral cavity is somewhat dry. NECK: Supple. LUNGS: With symmetric coarse breath sounds with no crackles or wheezing. HEART: S1, S2, regular rate, no obvious murmurs. ABDOMEN: Soft. Not distended. The patient moves extremities on command. Plantar responses are in different. No focal weakness. LABORATORY DATA: White cell count is down from 10 to 8.5, hemoglobin 8.8, MCV 91, platelets 100, 84 % neutrophils. INR 1.3. PH 7.5, pCO2 35, pO2 72 and creatinine is at 3.26. Sodium 146. Transamin ases and alkaline phosphatase normal, albumin is between 1.5 to 1.7. Urinalysis with 0-3 WBC's. Re ports include abdomen and pelvis CT from 12/30/2016, day after admission, showed small to moderate p leural effusions, atelectases, extravasation of contrast around the liver margin into the lucas hepa tis, a focal area of dense contrast in gastric lumen and free bile fluid surrounding the liver, dila edgar loops of jejunum. ASSESSMENT: History of dementia with some form of muscular dystrophy and a recent admission for acu te cholecystitis, status post endoscopic retrograde cholangiopancreatography and laparoscopic cholec ystectomy. The diagnosis was confirmed by pathology and the patient is readmitted now with bleeding presumably from a gastroesophageal junction area of erosion as well as biloma with biliary leak whi ch was fixed with stent by Dr. Morin. He now has evidence of Alice albicans fungemia 2/2 sets of peripheral blood samples. DISCUSSION: The timing of the blood draw is too close to the insertion of the central line to belie ve that this is a line related complication. This is more likely to represent fungemia deriving fro m the bile leak and the infection of the lucas hepatis area following the cholecystectomy. I theref ore advise keeping the line in place and treating with the current antifungal, eventual transition t o Diflucan given by the oral route whenever he stabilizes. Other possibilities such as hepatospleni c candidiasis and endocarditis appears to be less likely. Evidently, the patient is at risk for sub sequent development of colonization of the catheter, but I do not believe this catheter is going to be remaining in place for a long period of time.
[2017-01-03] MEDS: Amiodarone HCl 450 MG, Admixture Fee 1 EACH in Dextrose 5% in Water 250 ML IVPB SCH ×3 (17:13)
[2017-01-04 04:38] LABS: #Eosinphils 0.1 thou/uL (0.0-0.7); #Lymphocytes 0.4 thou/uL (1.20-3.40); #Monocytes 0.2 thou/uL (0.11-0.59); #Neutrophils 8.1 thou/uL (1.40-6.50); %Eosinophils 0.9 % (0.0-10.0); %Lymphocytes 4.3 % (21.0-51.0); %Monocytes 1.7 % (0.0-10.0); Hematocrit 25.4 % (42.0-52.0); Mean Platelet Volume 8.5 fL (7.4-10.4); Red Blood Cell (RBC) Count 2.78 mill/uL (4.70-6.10); White Blood Cell (WBC) Count 8.7 thou/uL (4.8-10.8)
[2017-01-04] MEDS: Piperacillin/Tazobactam 2.25 GM in Sodium Chloride 0.9% 100 ML IVPB SCH ×3 (05:03→17:34)
[2017-01-04 05:04] LABS: Anion Gap 20 mmol/L (10-20); BUN (Urea Nitrogen) 58 mg/dL (8.4-25.7); Calc. Creatinine Clearance 17 mL/min (70-130); Calcium 7.3 mg/dL (7.8-10.44); Carbon Dioxide 24 mmol/L (23-31); Chloride 106 mmol/L (98-107); Estimated GFR-MDRD 17; Phosphorus 4.3 mg/dL (2.3-4.7)
[2017-01-04] MEDS ORDERED: Fluconazole In NaCl,Iso-Osm 400 MG in Premix Bag 1 BAG IVPB SCH ×2 (09:00)
--- NOTE | 2017-01-04 09:35 | PDOC.PN ---
- Subjective Encounter Start Date: 01/04/17 Encounter Start Time: 09:18 Subjective: Up in chair -: Awake/alert -: No agitation - Objective Resuscitation Status: Resuscitation Status FULL:Full Resuscitation MAR Reviewed: Yes Vital Signs & Weight: Vital Signs (12 hours) Temp Pulse Resp Pulse Ox 01/04/17 08:00 98.1 F 01/04/17 06:38 105 H 25 H 94 L 01/04/17 04:00 98.4 F 01/04/17 01:24 95 01/04/17 01:00 98.2 F 01/03/17 23:52 93 24 H 100 Weight Admit Weight 171 lb Weight 81 lb 3.2 oz Most Recent Monitor Data Heart Rate from ECG 111 NIBP 86/54 NIBP BP-Mean 92 Respiration from ECG 20 SpO2 95 I&O: 01/03/17 01/04/17 01/05/17 06:59 06:59 06:59 Intake Total 2555.1 1519.4 Output Total 2540 2175 160 Balance 15.1 -655.6 -160 Result Diagrams: 01/04/17 03:30 01/04/17 03:30 Phys Exam - Physical Examination Constitutional: NAD HEENT: moist MMs, sclera anicteric Neck: no nodes, no JVD diminished at bases Cardiovascular: no significant murmur, no rub Gastrointestinal: non-tender, positive bowel sounds A&Ox1 (person) Deviation from normal: flat affect Skin: no rash, normal turgor Dx/Plan (1) Hypotension Status: Resolved Qualifiers: Hypotension type: other hypotension type Qualified Code(s): I95.89 - Other hypotension Comment: due to septic shock. Off levophed now (2) S/P laparoscopic cholecystectomy Code(s): Z90.49 - ACQUIRED ABSENCE OF OTHER SPECIFIED PARTS OF DIGESTIVE TRACT Status: Resolved (3) Anemia, normocytic normochromic Code(s): D64.9 - ANEMIA, UNSPECIFIED Status: Chronic (4) Acute blood loss anemia Code(s): D62 - ACUTE POSTHEMORRHAGIC ANEMIA Status: Acute Comment: S/P 4 U PRBCs, 2U FFP (5) GI bleed Code(s): K92.2 - GASTROINTESTINAL HEMORRHAGE, UNSPECIFIED Status: Acute Comment: Dr Morin following/GI following. follow up on their result.s H/H stable today - Plan * MONIQUE on CKD 4 - appreciate nephrology input, avoid nephrotoxic agents, check renal labs in AM * Fungemia - appreciate ID input * Post sphincteromy bleed - appreciate GI input * Continue ICU care - appreciate focus puller input
[2017-01-04 10:24] LABS: Hematocrit 26.8 % (42.0-52.0)
--- NOTE | 2017-01-04 10:59 | PRG ---
DATE OF SERVICE: 01/04/2017 SUBJECTIVE: This is an 89-year-old gentleman being seen for acute kidney injury. The patient denie s any nausea, vomiting, or chest pain. PHYSICAL EXAMINATION: GENERAL: Patient is awake, alert. VITAL SIGNS: Afebrile, pulse 100, breathing 16, blood pressure 86/46. HEAD/NECK: Normocephalic, atraumatic. EYES: EOMI. No deformity. EARS: Clear. No ulcers. NOSE: Intact. No lesions. MOUTH: Clear. No discharge. THROAT: Clear. No exudate. LUNGS: Clear. No crackles. CARDIAC: S1, S2. No rub. ABDOMEN: Benign. BS+. GENITALIA/RECTUM: Hidalgo absent. BACK/EXTREMITIES: 1+ edema Ulcer-. NEUROLOGICAL: Alert and motor intact. SKIN: Rash- Bruise- LYMPHATICS: Edema- Ulcer-. LABORATORY DATA: Show hemoglobin 8.5, sodium 146, potassium 3.5. ASSESSMENT AND PLAN: 1. Acute kidney injury with chronic kidney disease, most likely due to decreased effective arterial blood volume. Hold Lasix. 2. Hypernatremia. Continue free water. 3. Anemia, stable. 4. Medications based on glomerular filtration rate are appropriate. No indication for dialysis at this time.
[2017-01-04] MEDS ORDERED: Potassium Chloride 40 MEQ in Sodium Chloride 0.9% 250 ML 250 ML IVPB SCH (12:30)
[2017-01-04] MEDS: Pantoprazole 80 MG, Admixture Fee 1 EACH in Sodium Chloride 0.9% 100 ML IVPB SCH (12:42)
--- NOTE | 2017-01-04 13:18 | PRG ---
DATE OF SERVICE: 01/04/2017 SUBJECTIVE: Mr. Ng is awake and alert today. He denies any new problems. He denies any dyspne a or syncope. He denies any abdominal pain. He is having adequate urinary output in excess of 0.5 mL per kilogram per hour. He had 1 bowel movement overnight which was dark colored, no hematochezia . OBJECTIVE: VITAL SIGNS: This morning includes blood pressure 86/54, pulse 111, respiratory rate is 20. Maximu m temperature in the last 24 hours is 98.2 degrees Fahrenheit, oxygen saturation is 95% on 2 liters by nasal cannula oxygen. The patient is currently on amiodarone at 0.5 mg per hour. HEENT: Reveals normocephalic and atraumatic. Pupils are equal, round, and reactive to light and ac commodation. He has no jugular venous distention noted. HEART: Irregular rate and irregular rhythm albeit better rate controlled. LUNGS: Clear to auscultation bilaterally. Breathing is regular and unlabored. ABDOMEN: Soft and moderately distended and nontender to palpation. The abdominal drain returns sca nt bilious fluid. EXTREMITIES: Reveals 2+ radial and pedal pulses bilaterally. The patient has moderate ankle and pr etibial edema. NEUROLOGIC: Reveals no focal deficits present. LABORATORY DATA: Today includes CBC with 8700 white blood cells, hemoglobin 8.5, hematocrit is 25.4 , platelet count is 105,000. Metabolic profile: Sodium 136, potassium is 3.5, chloride is 106, bicarbonate is 24, BUN 58, creati nine is 3.43 and stable. Glucose is 77, magnesium 2.0. Phosphorus is 4.3. IMPRESSION: 1. Stable acute kidney injury. We will discontinue furosemide infusion and continue furosemide at 40 mg p.o. daily while monitoring the patient's urinary output. 2. Acute hypokalemia. We will correct this electrolyte abnormality. 3. Resolving acute peritonitis. The patient has remained hemodynamically stable overnight; therefo re, we will discontinue the amiodarone infusion and advance diet as tolerated dictated by speech pat hology evaluation. We will continue with physical and occupational therapy. Both findings and plan have been discussed with the patient who indicates understanding of information given.
[2017-01-04] MEDS: Micafungin 100 MG in Sodium Chloride 0.9% 100 ML IVPB SCH (13:22)
[2017-01-04] MEDS: Diabetic Tussin 200 MG/10 ML UDCUP PO PRN ×2 (16:40→21:19)
[2017-01-04] MEDS: Pantoprazole 40 MG VIAL IVP SCH (20:45)
[2017-01-04] MEDS ORDERED: guaiFENesin/Codeine Phosphate 200 mg/20 mg 10 ml UD Cup PO PRN (23:39)
--- NOTE | 2017-01-04 23:43 | PRG ---
DATE OF SERVICE: 01/04/2017 SUBJECTIVE: Mr. Ng had one small maroon stool yeterday but none today. His pulse is 102, he wa s extubated. His respirations were 27, temperature 98, blood pressure 158/35. He was really having minimal output through the ostomy, which is where the bile leak is draining. However, the nurse te lls me today 400 mL came out of that. ASSESSMENT: 1. High grade bile leak. 2. Peritonitis from bile leak. 3. Respiratory failure, resolved. 4. Bleeding post-sphincterotomy, controlled. Hemoglobin was 8.7 was 8.5 earlier this morning, 8.8 yesterday and 9 on the 24th. OBJECTIVE: LUNGS: Coarse with some coughing. He is awake and alert. ABDOMEN: Slightly protuberant. Ostomy bag in the right lower quadrant shows bilious material. Abd omen is nontender. LABORATORY STUDIES: White count 8.7, sodium is 146, potassium 3.5, BUN and creatinine are 58 and 3. 4. Albumin was 1.7 on the 24th. RECOMMENDATIONS: 1. Continue IV fluids. Consider some IV albumin as he is probably intravascularly depleted still. 2. I think something more permanent is going to need to be done about his high grade bile leak. Th e plastic stent does not seem to be having any effect more than the sphincterotomy. 3. No signs of active bleeding at this time. We will change omeprazole to 40 IV q.12 hours.
[2017-01-04] MEDS: Budesonide 0.5 MG/2 ML NEB INH SCH (23:50)
[2017-01-05] MEDS: Piperacillin/Tazobactam 2.25 GM in Sodium Chloride 0.9% 100 ML IVPB SCH ×4 (00:25→18:17)
[2017-01-05] MEDS: Benzonatate 100 MG CAP PO PRN ×2 (00:26→20:16)
[2017-01-05 04:29] LABS: #Lymphocytes 0.4 thou/uL (1.20-3.40); #Monocytes 0.1 thou/uL (0.11-0.59); #Neutrophils 6.8 thou/uL (1.40-6.50); %Basophils 0.1 % (0.0-1.0); %Eosinophils 0.4 % (0.0-10.0); %Lymphocytes 5.8 % (21.0-51.0); %Monocytes 1.6 % (0.0-10.0); Hematocrit 23.6 % (42.0-52.0); Mean Platelet Volume 8.7 fL (7.4-10.4); Red Blood Cell (RBC) Count 2.54 mill/uL (4.70-6.10); White Blood Cell (WBC) Count 7.3 thou/uL (4.8-10.8)
[2017-01-05 04:56] LABS: Anion Gap 21 mmol/L (10-20); BUN (Urea Nitrogen) 62 mg/dL (8.4-25.7); Calc. Creatinine Clearance 6 mL/min (70-130); Calcium 7.7 mg/dL (7.8-10.44); Carbon Dioxide 22 mmol/L (23-31); Chloride 109 mmol/L (98-107); Estimated GFR-MDRD 14; Phosphorus 5.1 mg/dL (2.3-4.7)
[2017-01-05] MEDS: Budesonide 0.5 MG/2 ML NEB INH SCH ×2 (06:23→19:02)
--- NOTE | 2017-01-05 08:32 | RAD ---
SINGLE VIEW OF THE CHEST: Comparison: 12-29-16 History: Cough. FINDINGS: Single view of the chest shows a normal sized cardiomediastinal silhouette. There appear to be subtl e bilateral perihilar/multifocal opacities which may represent infiltrates or pulmonary edema. The c entral venous catheter is unchanged in position. IMPRESSION: Stable exam. POS: TIFFANIE
[2017-01-05] MEDS: Pantoprazole 40 MG VIAL IVP SCH ×2 (09:36→20:16)
[2017-01-05] MEDS: guaiFENesin ER 600 MG TAB PO SCH ×2 (09:36→20:17)
[2017-01-05] MEDS: Furosemide 40 MG/4 ML VIAL SLOW IVP SCH (09:36)
--- NOTE | 2017-01-05 09:55 | PDOC.PN ---
- Subjective Encounter Start Date: 01/05/17 Encounter Start Time: 09:53 Subjective: No overnight issue -: No agitation -: No n/v - Objective Resuscitation Status: Resuscitation Status FULL:Full Resuscitation MAR Reviewed: Yes Vital Signs & Weight: Vital Signs (12 hours) Temp Pulse Resp Pulse Ox 01/05/17 08:00 97.8 F 32 L 32 H 96 01/05/17 06:28 100 01/05/17 06:23 104 H 30 H 100 01/05/17 04:00 99.0 F 97 01/05/17 00:36 95 01/05/17 00:00 97.7 F 01/04/17 23:50 112 H 26 H 95 Weight Admit Weight 171 lb Weight 184 lb 15.485 oz Most Recent Monitor Data Heart Rate from ECG 108 NIBP 83/61 NIBP BP-Mean 71 Respiration from ECG 17 SpO2 94 I&O: 01/04/17 01/05/17 01/06/17 06:59 06:59 06:59 Intake Total 1519.4 1256.2 0 Output Total 2175 1330 60 Balance -655.6 -73.8 -60 Result Diagrams: 01/05/17 04:15 01/05/17 04:15 Phys Exam - Physical Examination Constitutional: NAD HEENT: moist MMs, sclera anicteric Neck: no nodes, no JVD diminished at bases Cardiovascular: no significant murmur, no rub Gastrointestinal: soft distended Musculoskeletal: pulses present b/l le pitting edema Deviation from normal: flat affect Dx/Plan (1) Hypotension Status: Resolved Qualifiers: Hypotension type: other hypotension type Qualified Code(s): I95.89 - Other hypotension Comment: due to septic shock. Off levophed now (2) S/P laparoscopic cholecystectomy Code(s): Z90.49 - ACQUIRED ABSENCE OF OTHER SPECIFIED PARTS OF DIGESTIVE TRACT Status: Resolved (3) Anemia, normocytic normochromic Code(s): D64.9 - ANEMIA, UNSPECIFIED Status: Chronic (4) Acute blood loss anemia Code(s): D62 - ACUTE POSTHEMORRHAGIC ANEMIA Status: Acute Comment: S/P 4 U PRBCs, 2U FFP (5) GI bleed Code(s): K92.2 - GASTROINTESTINAL HEMORRHAGE, UNSPECIFIED Status: Acute Comment: Dr Morin following/GI following. follow up on their result.s H/H stable today - Plan * MONIQUE on CKD 4 - appreciate nephrology input, avoid nephrotoxic agents, check renal labs in AM * Bile leak with Peritonitis and Fungemia - appreciate GI (s/p biliary stent) and ID input, check WBC in AM * Post sphincteromy bleed - appreciate GI input, check H/H in AM * Continue ICU care - appreciate fundraising coordinator input
[2017-01-05 10:23] VITALS: BMI 32.8
--- NOTE | 2017-01-05 11:40 | PRG ---
DATE OF SERVICE: 01/05/2017 SUBJECTIVE: Mr. Ng is awake and alert. He reports no new problems. He clearly denies any abdo justice pain, dyspnea or syncope. Urinary output is approximately 30 mL per hour, which is slightly l ess than 0.5 mL per kilogram per hour. OBJECTIVE: VITAL SIGNS: Current vital signs includes blood pressure 85/41, pulse is 95 and regular, respirator y rate is 25. Maximum temperature in the last 24 hours is 99 degrees Fahrenheit. Oxygen saturation currently is 97% on 3 liters by nasal cannula oxygen. HEENT: Examination reveals normocephalic and atraumatic. HEART: Reveals regular rate and rhythm. No murmurs or gallops auscultated. CHEST: Clear to auscultation bilaterally. Breathing is regular and unlabored. ABDOMEN: Soft, nontender, and nondistended. Abdominal drain returns approximately 400 mL of biliou s drainage. NEUROLOGIC: Examination reveals no focal deficits present. LABORATORY DATA: Laboratory finding today includes CBC with 7,300 white blood cells, hemoglobin is 7.9, hematocrit is 23.6, and platelet count is 130,000. Metabolic profile: Sodium 148, potassium i s 4.0, chloride is 109, bicarbonate is 22, BUN 62, creatinine is 4.04, and glucose is 73. BNP is 11 62.1. IMPRESSION: 1. Acute kidney injury with evolving oliguric renal failure. 2. Stable acute blood loss anemia. 3. Stable acute hypernatremia. PLAN: 1. Continue with comfort care measures and serial physical examination. 2. Gentle diuresis will be ongoing. 3. We will ask palliative medicine to evaluate the patient. There is no acute surgical indication for patient at this time.
[2017-01-05] MEDS: Micafungin 100 MG in Sodium Chloride 0.9% 100 ML IVPB SCH (12:33)
--- NOTE | 2017-01-06 00:52 | PRG ---
DATE OF SERVICE: 01/05/2017 SUBJECTIVE: Mr. Ng shows no signs of bleeding. The nurses say he has had no bloody bowel movem ents. OBJECTIVE: VITAL SIGNS: Heart rate is 100, temperature 98, blood pressure 109/57. Urine output 930 in and 150 0 out. Right lower quadrant drainage bag 300 mL. GENERAL: He is alert and responsive. He is not eating well. LUNGS: Coarse breath sounds, no rhonchi, no wheezing. HEART: Sinus tachycardia. ABDOMEN: Nontender. There was some green bilious fluid draining from the bag. ASSESSMENT: 1. High grade bile leak from common bile duct after cholecystectomy with gangrenous gallbladder. If we are going to treat this further, I think the treatment would entail transfer to a tertiary care facility to see if he is a candidate for IM metallic wall stent as he would be a high risk for surge ry. 2. Acute kidney injury likely related to poor perfusion with low albumin. Consider adding albumin q.8 hours 25 grams. 3. Continue antibiotics for fungal peritonitis.
[2017-01-06] MEDS: Piperacillin/Tazobactam 2.25 GM in Sodium Chloride 0.9% 100 ML IVPB SCH ×6 (05:14→23:57)
[2017-01-06] MEDS: Budesonide 0.5 MG/2 ML NEB INH SCH ×2 (06:40→18:08)
--- NOTE | 2017-01-06 08:46 | PDOC.PN ---
- Subjective Encounter Start Date: 01/06/17 Encounter Start Time: 08:44 Subjective: Resting comfortably -: No agitation -: No overnight issues - Objective Resuscitation Status: Resuscitation Status DNR:Do Not Resuscitate MAR Reviewed: Yes Vital Signs & Weight: Vital Signs (12 hours) Temp Pulse Resp Pulse Ox 01/06/17 07:00 98.9 F 01/06/17 06:41 99 01/06/17 06:35 100 25 H 99 01/06/17 04:00 97.9 F 01/06/17 01:17 96 01/06/17 00:08 94 20 100 01/06/17 00:00 98.8 F Weight Admit Weight 171 lb Weight 177 lb 14.609 oz Most Recent Monitor Data Heart Rate from ECG 103 NIBP 94/44 NIBP BP-Mean 69 Respiration from ECG 28 SpO2 100 I&O: 01/05/17 01/06/17 01/07/17 06:59 06:59 06:59 Intake Total 1256.2 620 Output Total 1330 1160 45 Balance -73.8 -540 -45 Result Diagrams: 01/05/17 04:15 01/05/17 04:15 Phys Exam - Physical Examination Constitutional: NAD HEENT: moist MMs, sclera anicteric Neck: no nodes, no JVD Respiratory: no wheezing Cardiovascular: no significant murmur, no rub Gastrointestinal: soft generalized tenderness Skin: normal turgor, cap refill <2 seconds Dx/Plan (1) Hypotension Status: Resolved Qualifiers: Hypotension type: other hypotension type Qualified Code(s): I95.89 - Other hypotension Comment: due to septic shock. Off levophed now (2) S/P laparoscopic cholecystectomy Code(s): Z90.49 - ACQUIRED ABSENCE OF OTHER SPECIFIED PARTS OF DIGESTIVE TRACT Status: Resolved (3) Anemia, normocytic normochromic Code(s): D64.9 - ANEMIA, UNSPECIFIED Status: Chronic (4) Acute blood loss anemia Code(s): D62 - ACUTE POSTHEMORRHAGIC ANEMIA Status: Acute Comment: S/P 4 U PRBCs, 2U FFP (5) GI bleed Code(s): K92.2 - GASTROINTESTINAL HEMORRHAGE, UNSPECIFIED Status: Acute Comment: Dr Morin following/GI following. follow up on their result.s H/H stable today - Plan * MONIQUE on CKD 4 - appreciate nephrology input, avoid nephrotoxic agents, check renal labs in AM * Bile leak with Peritonitis and Fungemia - appreciate GI (s/p biliary stent) and ID input, check WBC in AM * Post sphincteromy bleed - appreciate GI input, check H/H in AM * Goals of Care: Palliative care consulted * Continue ICU care - appreciate blanker operator input
[2017-01-06] MEDS: Furosemide 40 MG/4 ML VIAL SLOW IVP SCH (09:38)
[2017-01-06] MEDS: Pantoprazole 40 MG VIAL IVP SCH ×2 (09:38→22:45)
[2017-01-06] MEDS: guaiFENesin ER 600 MG TAB PO SCH ×2 (09:39→22:46)
[2017-01-06] MEDS: Micafungin 100 MG in Sodium Chloride 0.9% 100 ML IVPB SCH (14:26)
--- NOTE | 2017-01-06 15:16 | PRG ---
DATE OF SERVICE: 01/06/2017 SUBJECTIVE: Mr. Ng is having no further bleeding. He continues to have drainage from his bile leak. PHYSICAL EXAMINATION: VITAL SIGNS: Pulse 103, respirations 28, blood pressure 91/41 and 93/45. GENERAL: He is nonicteric. LUNGS: Clear with rhonchi. HEART: Irregular rate and rhythm. ABDOMEN: Nontender. There is clear bilious fluid in the ostomy bag, 300 mL for the last 12 hours, urine output 1100 mL in the last 24 hours. LABORATORY STUDIES: None. ASSESSMENT: Large bile leak after cholecystectomy for gangrenous cholecystitis. This is not improv ed with placement of a plastic stent. We have discussed with General Surgery the option of transfer him to tertiary facility for a coated metallic Wallstent if this could close off the large leak as they felt he was not a good candidate for further surgery with high morbidity and mortality, and ass essed which I agree with. However, at this point in time, it seems that the will power of disability attorney for Mr. Ng has decided to withdraw Care and place him on hospice setting. The nurses have infor med me that they are upset they had initial surgeries; however, before proceeding with ERCP at his f irst admission, I had a long discussion with them about choledocholithiasis, his gallbladder infecti on, plans for removal of stone, cholecystectomy and they were in agreement with that plan at that ti me. I have not seen them here in the hospital, but told by the Hospitalist and nurses that the [facility] care has been involved and they did not want to proceed with further treatment. At this time , we want to keep him comfortable on course with his previous wishes, which is not unreasonable. I have discussed these issues with Dr. Chen who has not talked with the durable power of disability attorney him self, but does understand the decisions as well. The nurses informed me that he is going to [facility] with palliative care and hospice at this time. We are going to sign off at this time. If I can be of any further assistance in the patient's care, please do not hesitate to c ontact me.
[2017-01-07] MEDS: Piperacillin/Tazobactam 2.25 GM in Sodium Chloride 0.9% 100 ML IVPB SCH ×2 (05:26→12:30)
[2017-01-07] MEDS: Budesonide 0.5 MG/2 ML NEB INH SCH (06:41)
[2017-01-07] MEDS: Pantoprazole 40 MG VIAL IVP SCH (08:40)
[2017-01-07] MEDS: Furosemide 40 MG/4 ML VIAL SLOW IVP SCH (08:41)
[2017-01-07] MEDS: guaiFENesin ER 600 MG TAB PO SCH (08:41)
--- NOTE | 2017-01-07 09:26 | PDOC.PN ---
- Subjective Encounter Start Date: 01/07/17 Encounter Start Time: 08:45 -: old records requested/rev Patient seen and examined. No overnight events - Objective Resuscitation Status: Resuscitation Status DNR:Do Not Resuscitate MAR Reviewed: Yes Vital Signs & Weight: Vital Signs (12 hours) Temp Pulse Resp Pulse Ox 01/07/17 06:44 100 01/07/17 06:41 93 26 H 100 01/07/17 06:40 93 26 H 100 01/07/17 04:00 98.6 F 01/07/17 00:05 99 30 H 97 01/07/17 00:00 98.3 F Weight Admit Weight 171 lb Weight 176 lb 12.972 oz Most Recent Monitor Data Heart Rate from ECG 90 NIBP 97/49 NIBP BP-Mean 68 Respiration from ECG 22 SpO2 100 I&O: 01/06/17 01/07/17 01/08/17 06:59 06:59 06:59 Intake Total 620 705 0 Output Total 1160 1100 35 Balance -540 -395 -35 Result Diagrams: 01/05/17 04:15 01/05/17 04:15 EKG Reviewed by me: Yes (afib) Phys Exam - Physical Examination Constitutional: NAD HEENT: PERRLA, moist MMs, sclera anicteric Neck: no JVD, supple Respiratory: no wheezing, no rales, no rhonchi Cardiovascular: no significant murmur, irregular Gastrointestinal: soft, no distention, positive bowel sounds Musculoskeletal: no edema, pulses present Neurological: moves all 4 limbs Lymphatic: no nodes Psychiatric: normal affect Skin: no rash, normal turgor Dx/Plan (1) Acute blood loss anemia Code(s): D62 - ACUTE POSTHEMORRHAGIC ANEMIA Status: Acute Comment: S/P 4 U PRBCs, 2U FFP (2) Acute diastolic heart failure Code(s): I50.31 - ACUTE DIASTOLIC (CONGESTIVE) HEART FAILURE Status: Acute (3) Acute kidney failure Status: Acute Qualifiers: Acute renal failure type: with acute tubular necrosis Qualified Code(s): N17.0 - Acute kidney failure with tubular necrosis (4) Acute respiratory failure with hypoxia Code(s): J96.01 - ACUTE RESPIRATORY FAILURE WITH HYPOXIA Status: Acute (5) Central line-associated bloodstream infection Code(s): T80.211A - BLOODSTREAM INFECTION DUE TO CENTRAL VENOUS CATHETER, INIT Status: Acute Comment: suspected to be line assoicated, scould be related to abd infection. Line in, repeat BCx ordered. was on micafungin, ID following. Have changed to fluconazole as C. albican almost universally susceptible (6) Fungemia Code(s): B49 - UNSPECIFIED MYCOSIS Status: Acute (7) GI bleed Code(s): K92.2 - GASTROINTESTINAL HEMORRHAGE, UNSPECIFIED Status: Acute Comment: Dr Morin following/GI following. follow up on their result.s H/H stable today (8) Postoperative bile leak Code(s): K91.89 - OTH POSTPROCEDURAL COMPLICATIONS AND DISORDERS OF DGSTV SYS; K83.8 - OTHER SPECIFIED DISEASES OF BILIARY TRACT Status: Acute (9) Septic shock Code(s): A41.9 - SEPSIS, UNSPECIFIED ORGANISM; R65.21 - SEVERE SEPSIS WITH SEPTIC SHOCK Status: Acute (10) Anemia, normocytic normochromic Code(s): D64.9 - ANEMIA, UNSPECIFIED Status: Chronic (11) BPH (benign prostatic hyperplasia) Code(s): N40.0 - BENIGN PROSTATIC HYPERPLASIA WITHOUT LOWER URINRY TRACT SYMP Status: Chronic (12) Dementia Code(s): F03.90 - UNSPECIFIED DEMENTIA WITHOUT BEHAVIORAL DISTURBANCE Status: Chronic Qualifiers: Dementia type: vascular dementia Dementia behavioral disturbance: with behavioral disturbance Qualified Code(s): F01.51 - Vascular dementia with behavioral disturbance (13) Hypertension Code(s): I10 - ESSENTIAL (PRIMARY) HYPERTENSION Status: Chronic - Plan cont current plan of care * palliative care on case * will consider hospice evaluation * possible discharge to [place] with hospice for comfort care only * medication reviewed as below * symptomatic treatment. Review of Systems - Review of Systems Other: unable to review as pt is demented and not reliable - Medications/Allergies Allergies/Adverse Reactions: Allergies Allergy/AdvReac Type Severity Reaction Status Date / Time No Known Allergies Allergy Verified 12/23/16 08:31 Medications: Current Medications Acetaminophen (Tylenol) 650 mg PO Q4H PRN PRN Reason: Headache/Fever or Pain Albuterol/Ipratropium (Duoneb) 3 ml NEB [id number] Last Admin: 01/07/17 06:40 Dose: 3 ml Artificial Tears (Tears Naturale) 0 drop EA EYE PRN PRN PRN Reason: Dry Eyes Benzonatate (Tessalon) 100 mg PO TID PRN PRN Reason: Cough Last Admin: 01/05/17 20:16 Dose: 100 mg Bisacodyl (Dulcolax) 10 mg NC Q24H PRN PRN Reason: Constipation Budesonide (Pulmicort Neb Solution) 0.5 mg INH BID-RT [facility] Last Admin: 01/07/17 06:41 Dose: 0.5 mg Furosemide (Lasix) 40 mg SLOW IVP DAILY [facility] Last Admin: 01/07/17 08:41 Dose: 40 mg Guaifenesin (Robitussin Sf) 100 mg PO Q4H PRN PRN Reason: .COUGH Last Admin: 01/04/17 21:19 Dose: 100 mg Guaifenesin (Mucinex) 600 mg PO Q12HR [facility] Last Admin: 01/07/17 08:41 Dose: 600 mg Piperacillin Sod/Tazobactam (Sod 2.25 gm/ Sodium Chloride) 100 mls @ 200 mls/ hr IVPB Q6HR [facility] Last Admin: 01/07/17 05:26 Dose: 100 mls Micafungin Sodium 100 mg/ (Sodium Chloride) 100 mls @ 100 mls/hr IVPB 1300 [facility] Last Admin: 01/06/17 14:26 Dose: 100 mls Magnesium Hydroxide (Milk Of Magnesium) 30 ml PO DAILYPRN PRN PRN Reason: Constipation Mineral Oil/White Petrolatum (Eucerin Cream) 0 gm TOP BIDPRN PRN PRN Reason: Dry Skin Ondansetron HCl (Zofran) 4 mg IVP Q6H PRN PRN Reason: Nausea/Vomiting Last Admin: 12/30/16 05:28 Dose: 4 mg Pantoprazole Sodium (Protonix) 40 mg IVP Q12HR [facility] Last Admin: 01/07/17 08:40 Dose: 40 mg Sodium Chloride ([place] Nasal [place] 0.65%) 0 ml EA NARE QIDPRN PRN PRN Reason: Nasal Congestion Sodium Chloride (Flush - Normal Saline) 10 ml IVF Q12HR [facility] Last Admin: 01/07/17 08:41 Dose: 10 ml Sodium Chloride (Flush - Normal Saline) 10 ml IVF PRN PRN PRN Reason: Saline Flush
[2017-01-07] MEDS: Micafungin 100 MG in Sodium Chloride 0.9% 100 ML IVPB SCH (13:11)
--- NOTE | 2017-01-07 14:01 | DIS ---
DATE OF ADMISSION: 12/29/2016 DATE OF DISCHARGE: 01/07/2017 PRIMARY CARE PHYSICIAN: [facility] call admission. DISCHARGE DISPOSITION: intermediate with hospice. PRIMARY DISCHARGE DIAGNOSES: 1. Acute diastolic heart failure. 2. Acute respiratory failure with hypoxia. 3. Acute kidney failure. 4. Central line-associated bloodstream infection. 5. Fungemia. 6. Gastrointestinal bleed. 7. Septic shock. 8. Postoperative bile leak. 9. Acute blood loss anemia. SECONDARY DISCHARGE DIAGNOSES: Recent laparoscopic cholecystectomy for gangrenous cholecystitis, choledocholithiasis status post sphincterotomy, hypertension, dementia, benign enlargement of prostate, normocytic normochromic anemia, physical deconditioning, obesity with BMI 31. PRIMARY PROCEDURE/OPERATION: 1. During this admission, the patient had endotracheal intubation and mechanical ventilatory support. 2. The patient had ERCP with plastic biliary stent placement and EGD with control of hemorrhage by Dr. Morin. RADIOLOGICAL INVESTIGATION: Chest x-ray on admission showed left subclavian central line, nasogastric tube, right pleural effusion, pulmonary vascular congestion. Abdomen and pelvis CT scan showed bibasilar atelectasis extravasation of contrast surrounding liver, free bile fluid surrounding the liver, dilated loops of jejunum. Echocardiography showed EF 60-65%, diastolic dysfunction. SIGNIFICANT LABS: WBC 7.3, hemoglobin 7.9, platelets 130. INR 1.3. Sodium 148 , potassium 4.0, BUN 62, creatinine 4.04, calcium 7.7, and phosphorus 5.1. BNP 1162. Urinalysis, . Blood culture was positive for Alice albicans. Urine culture was negative. DISCHARGE MEDICATIONS: The patient is discharged to correction with hospice for comfort care, so final comfort care medication will defer to primary hospice team. Patient will be on the following medication for comfort: Acetaminophen 325 mg p.o. q.4 hourly p.r.n., Bisacodyl 5 mg p.o. p.r.n., calcium 500 mg p.o. b.i.d., Pepcid 20 mg p.o. at bedtime, Proscar 5 mg p.o. daily, milk of magnesia p.o. at bedtime p.r.n., meclizine 12.5 mg t.i.d. p.r.n. , MiraLax 17 grams p.o. daily, Exelon patch topical daily, Carafate 1 gram p.o. b.i.d., Flomax 0.4 mg p.o. at bedtime, Benadryl 25 mg q.8 hourly p.r.n. CONTRAINDICATIONS: None. CODE STATUS: DNR. This was discussed during this admission with help of patient's medical power of technology support analyst. INPATIENT CONSULTANTS: Dr. Chen was following while in hospital. Dr. Morin and Dr. Camarena was following while in hospital. Dr. Bautista was consulted while in hospital. Dr. Braun was consulted for acute kidney failure. TEST RESULTS PENDING ON DISCHARGE: None. ALLERGIES: No known drug allergy. DISCHARGE PLAN: Post hospital, the patient will follow up with primary care physician and hospice team at correction. HOSPITAL COURSE: An 89-year-old male who was recently admitted in our hospital. At that time, he was found with choledocholithiasis. He had abnormal LFTs. He underwent ERCP and sphincterotomy, and subsequently patient required laparoscopic cholecystectomy. He was admitted to medical floor. He was requiring drain and it was draining significant amount of bile. Patient was discharged to correction as per surgeon's and GI clearance and next day or two, the patient came back in the hospital with hypotension. Patient was having bile leakage from the surgical site. Patient was having septic shock. He was admitted in ICU. Patient required central line and intubation. Dr. Chen was managing ventilator. On admission, the patient was also having active upper GI bleed and that is why Dr. Morin did ERCP and EGD and control of hemorrhage was performed. He had acute blood loss anemia that was stabilized with IV fluid. This patient was having bile leak, but he was not a great candidate for surgery ; hence, after a couple of days, the patient was extubated and the patient was kept on comfort care. During this admission, we had multiple times discussion with the patient's medical power of technology support analyst and they confirmed about patient's DNR status and they do not want to have any aggressive or heroic measure and that is why the patient was kept on comfort care. During this admission, the patient also started to develop the acute kidney failure. He is having multiorgan failure. He also has congestive heart failure , kidney failure, and all consultants was following while in hospital, but patient's prognosis was extremely poor and at that point, the patient is kept on comfort care only. At this point, the patient will be discharged to the correction where he will continue to get comfort care from hospice team. The patient is seen and examined at bedside today. Please see my progress note from today for further details. Total time spent on discharge day more than 30 minutes. DAVIDD
[2017-01-07 15:33] VITALS: TEMP 98.2
== END 2017-01-07 15:39 | disposition hospice, inpatient (51) | DRG 853 ==
LOC: ERS 09:35 → CCU 11:07
PROVIDERS: ADMIT Hospitalist; ATTEND Hospitalist
PROC: 05H633Z Insertion of Infusion Device into Left Subclavian Vein, Percutaneous Approach (ICD-10-PCS; 2016-12-29)
PROC: 30233L1 Transfusion of Nonautologous Fresh Plasma into Peripheral Vein, Percutaneous Approach (ICD-10-PCS; 2016-12-30)
PROC: 30233K1 Transfusion of Nonautologous Frozen Plasma into Peripheral Vein, Percutaneous Approach (ICD-10-PCS; 2016-12-30)
PROC: 0F788DZ Dilation of Cystic Duct with Intraluminal Device, Via Natural or Artificial Opening Endoscopic (ICD-10-PCS; 2016-12-30)
PROC: 0W3P8ZZ Control Bleeding in Gastrointestinal Tract, Via Natural or Artificial Opening Endoscopic (ICD-10-PCS; 2016-12-30)
PROC: 5A1945Z Respiratory Ventilation, 24-96 Consecutive Hours (ICD-10-PCS; 2016-12-31)
PROC: 0BH17EZ Insertion of Endotracheal Airway into Trachea, Via Natural or Artificial Opening (ICD-10-PCS; 2016-12-31)
PROC: 0B9J8ZX Drainage of Left Lower Lung Lobe, Via Natural or Artificial Opening Endoscopic, Diagnostic (ICD-10-PCS; 2017-01-01)
PROC: 0B9C8ZX Drainage of Right Upper Lung Lobe, Via Natural or Artificial Opening Endoscopic, Diagnostic (ICD-10-PCS; 2017-01-01)
PROC: 0B9G8ZX Drainage of Left Upper Lung Lobe, Via Natural or Artificial Opening Endoscopic, Diagnostic (ICD-10-PCS; 2017-01-01)
PROC: 0B9D8ZX Drainage of Right Middle Lung Lobe, Via Natural or Artificial Opening Endoscopic, Diagnostic (ICD-10-PCS; 2017-01-01)
PROC: 0B9H8ZX Drainage of Lung Lingula, Via Natural or Artificial Opening Endoscopic, Diagnostic (ICD-10-PCS; 2017-01-01)
PROC: 0B9F8ZX Drainage of Right Lower Lung Lobe, Via Natural or Artificial Opening Endoscopic, Diagnostic (ICD-10-PCS; 2017-01-01)
PROC: 30233N1 Transfusion of Nonautologous Red Blood Cells into Peripheral Vein, Percutaneous Approach (ICD-10-PCS; principal; 2017-01-05)
DX: B37.7 Candidal sepsis (principal); N17.2 Acute kidney failure with medullary necrosis; J69.0 Pneumonitis due to inhalation of food and vomit; J96.01 Acute respiratory failure with hypoxia; R65.21 Severe sepsis with septic shock; I50.31 Acute diastolic (congestive) heart failure; K22.6 Gastro-esophageal laceration-hemorrhage syndrome; K65.3 Choleperitonitis; E87.2 Acidosis; E87.3 Alkalosis; E87.0 Hyperosmolality and hypernatremia; K92.2 Gastrointestinal hemorrhage, unspecified; D62 Acute posthemorrhagic anemia; N18.4 Chronic kidney disease, stage 4 (severe); I13.0 Hypertensive heart and chronic kidney disease with heart failure and stage 1 through stage 4 chronic kidney disease, or unspecified chronic kidney disease; I12.9 Hypertensive chronic kidney disease with stage 1 through stage 4 chronic kidney disease, or unspecified chronic kidney disease; G30.9 Alzheimer's disease, unspecified; F02.80 Dementia in other diseases classified elsewhere, unspecified severity, without behavioral disturbance, psychotic disturbance, mood disturbance, and anxiety; E86.0 Dehydration; Z66 Do not resuscitate; F41.9 Anxiety disorder, unspecified; F32.9 Major depressive disorder, single episode, unspecified; E83.42 Hypomagnesemia; E83.39 Other disorders of phosphorus metabolism; N40.0 Benign prostatic hyperplasia without lower urinary tract symptoms; E87.6 Hypokalemia; Z51.5 Encounter for palliative care; E66.9 Obesity, unspecified; Z68.31 Body mass index [BMI] 31.0-31.9, adult
CPT/HCPCS: 36415; 36430; 36556; 71010; 74176; 74330; 80048; 80053; 80076; 81001; 82533; 82805; 83605; 83735; 83880; 84100; 85007; 85014; 85018; 85025; 85027; 85384; 85610; 85730; 86850; 86900; 86901; 87040; 87070; 87086; 87102; 87205; 93306; 94002; 94003; 94640; 96361; 96365; 96367; 96368; 96375; A4216; C9113; G8996-GN-CM; G8997-GN-CL; J0282; J1940; J2001; J2185; J2248; J2250; J2405; J2543; J3010; J3430; J3475; J3480; J7050; J7070; J7620; J7626; P9016; P9045; P9059; Q9961